=== PATIENT | female | born 1955 | race Caucasian/White ===

== ENCOUNTER 2023-05-10 14:57 | Outpatient (AMB) | payer OTHER, SELFPAY ==
[2023-05-10 14:59] VITALS: BP 112/62; PULSE 79; O2SAT 96; BMI 27.9
--- NOTE | 2023-05-10 14:59 | A.OFFPC_ITS ---
Vital Signs 05/10/23 14:59 Height 5 ft 3 in Weight 157 lb 4 oz BMI 27.9 BP 112/62 Blood Pressure Location Lt brachial Position Sitting Pulse 79 Pulse Source Pulse Oximeter Pulse Oximetry (%) 96 Oxygen Delivery Method Room Air Intake Visit Reasons: New patient-Requesting physical Intake Note: Patient is here as a new patient, she is concerned about hot flashes and her belly. Allergies ibuprofen Allergy (Mild, Verified 05/10/23 15:07) head feels like it's going to blow up morphine Allergy (Mild, Verified 05/10/23 15:07) Stomach Upset codeine Adverse Reaction (Mild, Verified 05/10/23 15:07) Stomach Upset Medication List - Last Reconciled 05/10/23 by Juan Andre MD atenolol 50 mg PO DAILY cholecalciferol (vitamin D3) 25 mcg PO DAILY citalopram 20 mg PO DAILY multivit, Ca, min-FA-soy isofl 400-60 mcg-mg (One-A-Day Menopause Formula) tabs PO simvastatin 20 mg PO DAILY vitamins A,C,P-epun-abymnc 4,296 mcg-226 mg-90 mg (ICaps AREDS) 1 cap PO BID HPI New patient-Requesting physical HPI Details New patient Prior PCP:?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 Hyperthyroid. Dad: PE. Brother: Substance abuse, Liver CA, DM. Sister: Lung CA. SocHx: Quit 35 years ago. EtOH 1 beer daily. No drugs. PFSH Medical History (Updated 05/10/23 @ 16:06 by Dean Bose) High cholesterol Surgical History (Updated 05/10/23 @ 15:12 by Paula Paulson CMA) History of reversal of tubal ligation H/O tubal ligation Family History (Updated 05/10/23 @ 15:15 by Paula Paulson CMA) Mother Colon cancer Father Pulmonary embolism Social History (Updated 05/10/23 @ 15:17 by Paula Paulson CMA) Household Members: None Housing: House Alcohol intake: current Patient Tobacco Use Status: Former Tobacco user Special michael needs: No Questionnaire PHQ-9 Over the last 2 weeks, how often have you been bothered by any of the following problems? 1. Little interest or pleasure in doing things: not at all 2. Feeling down, depressed, or hopeless: several days 3. Trouble falling or staying asleep, or sleeping too much: not at all 4. Feeling tired or having little energy: not at all 5. Poor appetite or overeating: not at all 6. Feeling bad about yourself - or that you are a failure or have let yourself or your family down: not at all 7. Trouble concentrating on things, such as reading the newspaper or watching television: not at all 8. Moving or speaking so slowly that other people could have noticed. Or the opposite - being so fidgety or restless that you have been moving around a lot more than usual: not at all 9. Thoughts that you would be better off or of hurting yourself in some way: not at all Total score: 1 Source: Developed by Drs. Bernard Lincoln, Ema Moran, Manjinder Elizondo and colleagues, with an educational kendra from [employer]. Thrive Questionnaire I am a: Patient What is your living situation today?: I have a steady place to live Within the past 12 months, did the food you bought not last and you didn't have the money to get more?: Never true Within the past 12 months, did you worry whether your food would run out before you got money to buy more?: Never true Do you have trouble paying for medicines?: No Do you have trouble getting transportation to medical appointments?: No Do you have trouble paying your heating and electricity bill?: No Do you have trouble taking care of your child, family member or friend?: No Do you have trouble with day-to-day activities such as bathing, preparing meals, shopping, managing finances, etc.?: No Are you currently unemployed and looking for a job?: No Are you interested in more education?: No AUDIT C Alcohol Use Questionnaire (AUDIT-C) 1. How often do you have a drink containing alcohol?: 2-3 times a week 2. How many drinks containing alcohol do you have on a typical day when you are drinking?: 1 or 2 3. How often do you have six or more drinks on one occasion?: Never Total Score: 3 MADAN-7 AMB Questionnaire MADAN-7 Date MADAN - 7 assessed: 05/10/23 Feeling nervous, anxious, or on edge: 0 = Not at all Not being able to stop or control worryin = Not at all Worrying too much about different things: 0 = Not at all Trouble relaxin = Not at all Being so restless that it is hard to sit still: 0 = Not at all Becoming easily annoyed or irritable: 0 = Not at all Feeling afraid as if something awful might happen: 0 = Not at all Total MADAN-7 score (0-4 normal; 5-9 mild; 10-14 moderate; 15-21 severe): 0 Source: Developed by Drs. Bernard Lincoln, Ema Moran, Manjinder Elizondo and colleagues, with an educational kendra from [employer]. Review of Systems Const Denies chills, Denies fatigue, Denies fever(s), Denies headache(s) and Denies weakness ENT Denies dizziness and Denies headache(s) Card Denies chest pain, Denies lightheadedness, Denies dyspnea and Denies other (Palpitations) Resp Denies cough, Denies dyspnea, Denies wheezing and Denies other ( shortness of breath) Musc Denies numbness and Denies tingling Neuro Denies dizziness, Denies headache(s), Denies numbness, Denies tingling, Denies paresthesias and Denies weakness Psych Denies anxiety and Denies depression Endo Denies fatigue Aller/Immun Denies wheezing Physical exam (Primary Care) Vital Signs: Last Vital Signs Pulse 79 05/10/23 14:59 BP 112/62 05/10/23 14:59 Pulse Ox 96 05/10/23 14:59 Oxygen Delivery Method Room Air 05/10/23 14:59 BMI result Body Mass Index 27.9 Tobacco/Smoking Status: Tobacco use Status Patient Tobacco Use Status Former Tobacco user 05/10/23 15:17 PHQ-9: PHQ-9 Score PHQ-9: Total score 1 05/10/23 15:31 Const General: no acute distress and well developed Nutritional Appearance: well nourished Orientation/consciousness: patient oriented x3 [facility] Head: Yes normocephalic and Yes atraumatic Eyes General: appearance normal, both eyes and all related structures Pupils: Equal, round and reactive pupils present EOM: EOMs intact bilaterally Resp Effort & Inspection: normal respiratory effort Auscultation: clear to auscultation bilaterally Cardio Rate: regular rate Rhythm: regular rhythm Heart sounds: S1 normal heart sound present, S2 normal heart sound present, no gallops, no murmurs and no rubs Neuro General: patient oriented x3 and gait normal Cranial nerves: Yes Equal, round and reactive pupils present Psych Affect: normal affect Assessment and Plan Assessment & Plan (1) Elevated fasting blood sugar: Code(s): R73.01 - Impaired fasting glucose Plan: Patient notes elevated fasting blood sugars. She did have a brother with diabetes that she says he ?did not take care of himself? Will check A1c test (2) Hot flashes: Code(s): R23.2 - Flushing Plan: Patient is frustrated regarding hot flashes and postmenopausal symptoms which have not abated She is trying [id number] supplements for now. We discussed clonidine and gabapentin. She has been on citalopram for many years for anxiety and depression so is already using an SSRI without improvement She will let me know if she would like to try a small dose of clonidine. (3) HLD (hyperlipidemia): Code(s): E78.5 - Hyperlipidemia, unspecified Plan: She is on simvastatin Check lipids (4) Mitral valve regurgitation: Code(s): I34.0 - Nonrheumatic mitral (valve) insufficiency Plan: She has an appointment with a new java web developer at [facility]. I have asked her to have them forward the java web developer's note. Cardiac auscultation today was normal. (5) Postmenopausal: Code(s): Z78.0 - Asymptomatic menopausal state Plan: As above, patient is postmenopausal and having symptoms from this. Trying supplements and we discussed that we could try some clonidine She will call if she wants to try this (6) Osteopenia: Code(s): M85.80 - Other specified disorders of bone density and structure, unspecified site Plan: Patient notes that she has been told she has osteopenia. Will follow with bone density testing when this is due Patient drinks a lot of cells are and advised her that this can worsen bone mineral loss (7) Depression with anxiety: Code(s): F41.8 - Other specified anxiety disorders Plan: She notes that she has been on citalopram for many years. She thinks about discontinuing this but says she is afraid to. She can trial taking half a tablet daily and resume 20 mg daily if she is having any problem with it. Otherwise we can discuss at her next visit and could continue to wean down further if she is able. (8) Overweight: Code(s): E66.3 - Overweight Plan: Patient is overweight and is frustrated with difficulty with weight loss. Will await labs including her A1c as she notes that she has some elevated fasting blood sugars. She may qualify for weight management program. She also noted that she drinks about 1 beer per day and this can be quite high in calories. Advised she reduce this due to caloric intake alone. (9) Laboratory exam ordered as part of routine general medical examination: Code(s): Z00.00 - Encounter for general adult medical examination without abnormal findings Plan: Check labs Orders: Orders Comprehensive [place]. Panel Fast Today Z00.00 - Encounter for general adult medical examination without abnormal findings Complete Blood Count Auto Diff Today Z00.00 - Encounter for general adult medical examination without abnormal findings TSH reflex Free T4 Today Z00.00 - Encounter for general adult medical examination without abnormal findings UA and rflx microscopic Today Z00.00 - Encounter for general adult medical examination without abnormal findings Hemoglobin A1c Today R73.01 - Impaired fasting glucose Lipid Panel Today Z00.00 - Encounter for general adult medical examination without abnormal findings Microalbumin, Random (w Creat) Today I10 - Essential (primary) hypertension Vitamin D 25-OH Total Today E55.9 - Vitamin D deficiency, unspecified Coding Level of Care Code New Pt Level 4 (27952) Diagnoses Elevated fasting blood sugar R73.01 Hot flashes R23.2 HLD (hyperlipidemia) E78.5 Mitral valve regurgitation I34.0 Postmenopausal Z78.0 Osteopenia M85.80 Depression with anxiety F41.8 Overweight E66.3 Laboratory exam ordered as part of routine general medical examination Z00.00
== END 2023-05-10 16:12 | disposition home or self-care (01) ==
PROVIDERS: PCP Family Medicine; Visit Provider Family Medicine
DX: R73.01 Impaired fasting glucose (principal); R23.2 Flushing; F41.8 Other specified anxiety disorders; E78.5 Hyperlipidemia, unspecified; I34.0 Nonrheumatic mitral (valve) insufficiency; Z78.0 Asymptomatic menopausal state; M85.80 Other specified disorders of bone density and structure, unspecified site; E66.3 Overweight
CPT/HCPCS: 99204

== ENCOUNTER 2023-07-20 07:29 | Outpatient (REF) | payer OTHER, SELFPAY ==
[2023-07-20 11:40] LABS: Appearance Urine Clear; Color Urine Yellow; Glucose Urine UA Negative (Negative); Leukocyte Esterase Urine Negative (Negative); Nitrite Urine Negative (Negative); Specific Gravity - Urine 1.015 (1.005-1.025); Urine Blood Negative (Negative); Urine Ketones Negative (Negative); Urine Protein Negative (Neg-Trace)
[2023-07-20 11:44] LABS: MANUAL DIFF FLAG NO
[2023-07-20 12:16] LABS: Estimated Average Glucose 114 mg/dL; Hemoglobin A1c % 5.6 % (<6.0)
[2023-07-20 12:26] LABS: Basophils Percent Auto 0.7 % (0-2); Eosinophils Absolute Auto 0.1 X10*3/uL (0.0-0.4); Eosinophils Percent Auto 3.3 % (0-4); Hematocrit 45.2 % (37.0-47.0); Hemoglobin 14.9 g/dl (12.0-16.0); Imm Gran Abs Auto 0.01 X10*3/uL (0.00-0.03); Imm Gran Pct Auto 0.2 % (0.0-0.4); Lymphocytes Absolute Auto 1.6 X10*3/uL (1.2-4.9); Lymphocytes Percent Auto 38.7 % (20-40); Mean Corpuscular Hemoglobin 30.4 pg (27.0-33.0); Mean Corpuscular Volume 92.2 fL (80.0-98.0); Mean Platelet Volume 10.8 fL (9.4-12.3); Monocytes Absolute Auto 0.4 X10*3/uL (0.1-1.2); Monocytes Percent Auto 10.3 % (2-11); Neutrophils Percent Auto 46.8 % (45-73); Platelet Count 226 X10*3/uL (160-400); Red Cell Distribution Width 13.4 % (11.0-16.0); White Blood Count 4.2 X10*3/uL (4.8-10.8)
[2023-07-20 12:33] LABS: Alanine Aminotransferase 17 U/L (0-31); Alkaline Phosphatase 71 U/L (39-117); Anion Gap 10 (12-20); Aspartate Amino Transferase 17 U/L (5-31); Bilirubin Total 0.7 mg/dL (0.0-1.0); Blood Urea Nitrogen 11 mg/dL (9-16); Carbon Dioxide 27 mmol/L (22-29); Chloride 103 mmol/L (96-108); Cholesterol 241 mg/dL (<200); Estimated Glomerular Filt Rate > 60; Glucose Fasting 109 mg/dL (60-99); HDL Cholesterol 39 mg/dL (>40); LDL Cholesterol Calculated 168 mg/dL (<100); Potassium 4.3 mmol/L (3.3-5.1); Sodium 136 mmol/L (135-145); Total Protein 6.8 g/dL (6.5-8.0); Triglycerides 174 mg/dL (<150)
[2023-07-20 12:51] LABS: Creatinine Urine 146.85 mg/dL
[2023-07-20 12:59] LABS: TSH reflex Free T4 3.92 uIU/mL (0.32-4.0); Vitamin D 25-OH Total 47.1 ng/mL (>30)
== END 2023-07-20 07:30 | disposition home or self-care (01) ==
LOC: HO.WFDLDS 07:29
PROVIDERS: Visit Provider Family Medicine
DX: Z00.00 Encounter for general adult medical examination without abnormal findings (principal); I10 Essential (primary) hypertension; R73.01 Impaired fasting glucose; E55.9 Vitamin D deficiency, unspecified
CPT/HCPCS: 36415; 80053; 80061; 81003; 82043; 82306; 82570; 83036; 84443; 85025

== ENCOUNTER 2023-08-03 10:51 | Outpatient (AMB) | payer OTHER, SELFPAY ==
--- NOTE | 2023-08-03 11:03 | A.OFFPC_ITS ---
Vital Signs 08/03/23 11:05 Height 5 ft 3 in Weight 156 lb BMI 27.6 BP 120/64 Blood Pressure Location Lt brachial Position Sitting Pulse 69 Pulse Source Pulse Oximeter Pulse Oximetry (%) 97 Oxygen Delivery Method Room Air Intake Visit Reasons: CPE with f/u labs and health maint. Intake Note: Patient is here today for her physical. Allergies ibuprofen Allergy (Mild, Verified 08/03/23 11:06) head feels like it's going to blow up morphine Allergy (Mild, Verified 08/03/23 11:06) Stomach Upset codeine Adverse Reaction (Mild, Verified 08/03/23 11:06) Stomach Upset Tobacco use date assessed: 08/03/23 Fall risk assessment: No Falls in past year Last assessed Fall Risk: 08/03/23 Dental Screening Dental Screen Date: 08/03/23 Did you have a dental visit in the last 12 months?: Yes Did you have a dental problem in the last 6 months where you did not have access to dental care?: No Was dental information given to patient?: Patient has dentist HPI CPE with f/u labs and health maint. HPI Details 67 y/o female presents for a CPE with f/ u labs and health maintenance. Labs were drawn 07/20/23. Reviewed labs with pt. Elevated fasting glucose of 109. A1c 5.6%. Triglycerides 174. TC 241. LDL 168. HDL low at 39. She is on simvastatin 20mg daily. She follows up with an community relations specialist every year. Pt reports she is up to date with her colonoscopy. She follows up with them every 5 years due to hx of polyps. [facility] Medical History High cholesterol Surgical History History of reversal of tubal ligation H/O tubal ligation Family History Mother Colon cancer Father Pulmonary embolism Social History Household Members: None Housing: House Alcohol intake: current Patient Tobacco Use Status: Former Tobacco user Special michael needs: No Cognitive needs: No Hearing needs: No Vision needs: Yes (Patient wears glasses.) Questionnaire MADAN-7 AMB Questionnaire MADAN-7 Date MADAN - 7 assessed: 05/10/23 Source: Developed by Drs. Bernard Lincoln, Ema Moran, Manjinder Elizondo and colleagues, with an educational kendra from [employer]. Physical exam (Primary Care) Vital Signs: Last Vital Signs Pulse 69 08/03/23 11:05 BP 120/64 08/03/23 11:05 Pulse Ox 97 08/03/23 11:05 Oxygen Delivery Method Room Air 08/03/23 11:05 BMI result Body Mass Index 27.6 Tobacco/Smoking Status: Tobacco use Status Tobacco use date assessed 08/03/23 08/03/23 11:08 Patient Tobacco Use Status Former Tobacco user 08/03/23 11:08 Assessment and Plan Assessment & Plan (1) Adult general medical exam: Code(s): Z00.00 - Encounter for general adult medical examination without abnormal findings Plan: 67-year-old?woman?presents?for?complete?physical?exam Encouraged?healthy?diet?with?active?lifestyle?and?plenty?of?exercise (2) HLD (hyperlipidemia): Code(s): E78.5 - Hyperlipidemia, unspecified Plan: LDL?cholesterol?still?too?high?despite?simvastatin?20?mg?daily.??Will?switch?thi s?to?atorvastatin?20?mg?daily We?can?check?this?again?in?a?few?months (3) Elevated fasting blood sugar: Code(s): R73.01 - Impaired fasting glucose Plan: Mildly?elevated?fasting?blood?sugars?and?A1c?at?top?normal?range;?5.6% Likely?insulin?resistance Encouraged?a?diet?lower?in?sugars?and?starches.??Encouraged?weight?loss?and?exer cise (4) Osteopenia: Code(s): M85.80 - Other specified disorders of bone density and structure, unspecified site Plan: Encouraged?weight-bearing?exercise?and?good?sources?of?calcium?and?vitamin-D Her?vitamin-D?level?was?within?normal?range (5) Screening for colon cancer: Code(s): Z12.11 - Encounter for screening for malignant neoplasm of colon Plan: Colonoscopy?by??Tracey Will?request?report (6) Screening for cervical cancer: Code(s): Z12.4 - Encounter for screening for malignant neoplasm of cervix Plan: No?longer?gets?Pap?smears (7) Breast cancer screening by mammogram: Code(s): Z12.31 - Encounter for screening mammogram for malignant neoplasm of breast Plan: [facility]at[facility] Will?request?report (8) Mitral valve regurgitation: Code(s): I34.0 - Nonrheumatic mitral (valve) insufficiency Plan: Follow-up?with?Cardiology Medications: New atorvastatin 20 mg PO BEDTIME 90 days 90 tabs 3RF Coding Level of Care Code Est Pt Level 3 (20847) Est Pt Prev Care >65y(84213) Diagnoses Adult general medical exam Z00.00 HLD (hyperlipidemia) E78.5 Elevated fasting blood sugar R73.01 Osteopenia M85.80 Screening for colon cancer Z12.11 Screening for cervical cancer Z12.4 Breast cancer screening by mammogram Z12.31 Mitral valve regurgitation I34.0
[2023-08-03 11:05] VITALS: BP 120/64; PULSE 69; O2SAT 97; BMI 27.6
== END 2023-08-03 12:08 | disposition home or self-care (01) ==
PROVIDERS: PCP Family Medicine; Visit Provider Family Medicine
DX: Z00.00 Encounter for general adult medical examination without abnormal findings (principal); E78.5 Hyperlipidemia, unspecified; R73.01 Impaired fasting glucose; M85.80 Other specified disorders of bone density and structure, unspecified site; I34.0 Nonrheumatic mitral (valve) insufficiency; Z12.31 Encounter for screening mammogram for malignant neoplasm of breast; Z12.11 Encounter for screening for malignant neoplasm of colon; Z12.4 Encounter for screening for malignant neoplasm of cervix
CPT/HCPCS: 99213; 99397

== ENCOUNTER 2023-10-31 07:35 | Outpatient (REF) | payer MEDICARE, SELFPAY ==
[2023-10-31 11:46] LABS: Estimated Average Glucose 114 mg/dL; Hemoglobin A1c % 5.6 % (<6.0)
[2023-10-31 12:10] LABS: Alanine Aminotransferase 16 U/L (0-31); Alkaline Phosphatase 72 U/L (39-117); Anion Gap 9 (12-20); Aspartate Amino Transferase 16 U/L (5-31); Bilirubin Total 0.7 mg/dL (0.0-1.0); Blood Urea Nitrogen 13 mg/dL (9-16); Calcium 9.3 mg/dL (8.4-10.2); Carbon Dioxide 28 mmol/L (22-29); Chloride 108 mmol/L (96-108); Cholesterol 180 mg/dL (<200); Estimated Glomerular Filt Rate > 60; Glucose Fasting 95 mg/dL (60-99); HDL Cholesterol 39 mg/dL (>40); LDL Cholesterol Calculated 114 mg/dL (<100); Potassium 4.6 mmol/L (3.3-5.1); Sodium 140 mmol/L (135-145); Total Protein 6.7 g/dL (6.5-8.0); Triglycerides 137 mg/dL (<150)
[2023-10-31 12:30] LABS: Vitamin D 25-OH Total 39.3 ng/mL (>30)
== END 2023-10-31 07:36 | disposition home or self-care (01) ==
LOC: HO.WFDLDS 07:35
PROVIDERS: Visit Provider Family Medicine
DX: Z00.00 Encounter for general adult medical examination without abnormal findings (principal); R73.01 Impaired fasting glucose; E78.5 Hyperlipidemia, unspecified; E55.9 Vitamin D deficiency, unspecified
CPT/HCPCS: 36415; 80053; 80061; 82306; 83036

== ENCOUNTER 2023-11-03 08:45 | Outpatient (AMB) | payer MEDICARE, SELFPAY ==
[2023-11-03 08:47] VITALS: BP 120/82; PULSE 77; O2SAT 97; BMI 27.5
--- NOTE | 2023-11-03 08:47 | A.OFFPC_ITS ---
Vital Signs 11/03/23 08:47 Height 5 ft 3 in Weight 155 lb 6 oz BMI 27.5 BP 120/82 Blood Pressure Location Rt brachial Position Sitting Pulse 77 Pulse Source Pulse Oximeter Pulse Oximetry (%) 97 Oxygen Delivery Method Room Air Intake Visit Reasons: f/u hypercholesterolemia Intake Note: Pt presents to the office today for a follow up for hypercholesterolemia. Pt states she has been feeling well and denies any concerns at this time. Allergies ibuprofen Allergy (Mild, Verified 11/03/23 08:50) head feels like it's going to blow up morphine Allergy (Mild, Verified 11/03/23 08:50) Stomach Upset codeine Adverse Reaction (Mild, Verified 11/03/23 08:50) Stomach Upset Tobacco use date assessed: 11/03/23 Fall risk assessment: No Falls in past year Last assessed Fall Risk: 11/03/23 Dental Screening Dental Screen Date: 11/03/23 Did you have a dental visit in the last 12 months?: Yes Did you have a dental problem in the last 6 months where you did not have access to dental care?: No Was dental information given to patient?: Patient has dentist HPI f/u hypercholesterolemia 2 HPI Details 68 y/o female presents to f/u hyperchole sterolemia. Had changed simvastatin to artovastatin. Labs were drawn 10/31/23. Reviewed labs with pt. Triglycerides 137. TC 180. LDL improved from 168 to 114. HDL low at 39. She denies any issues with artovastatin. Ongoing complaints of hot flashes - menopause. [facility] Medical History High cholesterol Surgical History History of reversal of tubal ligation H/O tubal ligation Family History (Updated 11/03/23 @ 08:53 by Yashira Ray MA) Mother Colon cancer Father Pulmonary embolism Brother Substance use disorder Mental health disorder Social History Household Members: None Housing: House Alcohol intake: current Patient Tobacco Use Status: Former Tobacco user Special michael needs: No Cognitive needs: No Hearing needs: No Vision needs: Yes (Patient wears glasses.) Questionnaire PHQ-9 Over the last 2 weeks, how often have you been bothered by any of the following problems? 1. Little interest or pleasure in doing things: not at all 2. Feeling down, depressed, or hopeless: several days 3. Trouble falling or staying asleep, or sleeping too much: not at all 4. Feeling tired or having little energy: not at all 5. Poor appetite or overeating: not at all 6. Feeling bad about yourself - or that you are a failure or have let yourself or your family down: not at all 7. Trouble concentrating on things, such as reading the newspaper or watching television: not at all 8. Moving or speaking so slowly that other people could have noticed. Or the opposite - being so fidgety or restless that you have been moving around a lot more than usual: not at all 9. Thoughts that you would be better off or of hurting yourself in some way: not at all Total score: 1 Source: Developed by Drs. Bernard Lincoln, Ema Moran, Manjinder Elizondo and colleagues, with an educational kendra from [email or web address]. Thrive Questionnaire Date Thrive assessed: 11/03/23 I am a: Patient What is your living situation today?: I have a steady place to live Within the past 12 months, did the food you bought not last and you didn't have the money to get more?: Never true Within the past 12 months, did you worry whether your food would run out before you got money to buy more?: Never true Do you have trouble paying for medicines?: No Do you have trouble getting transportation to medical appointments?: No Do you have trouble paying your heating and electricity bill?: No Do you have trouble taking care of your child, family member or friend?: No Do you have trouble with day-to-day activities such as bathing, preparing meals, shopping, managing finances, etc.?: No Are you currently unemployed and looking for a job?: No Are you interested in more education?: No THRIVE Score: 0 AUDIT C Alcohol Use Questionnaire (AUDIT-C) 1. How often do you have a drink containing alcohol?: Monthly or less 2. How many drinks containing alcohol do you have on a typical day when you are drinking?: 1 or 2 3. How often do you have six or more drinks on one occasion?: Never Total Score: 1 MADAN-7 AMB Questionnaire MADAN-7 Date MADAN - 7 assessed: 05/10/23 Feeling nervous, anxious, or on edge: 0 = Not at all Not being able to stop or control worryin = Not at all Worrying too much about different things: 0 = Not at all Trouble relaxin = Not at all Being so restless that it is hard to sit still: 0 = Not at all Becoming easily annoyed or irritable: 0 = Not at all Feeling afraid as if something awful might happen: 0 = Not at all Total MADAN-7 score (0-4 normal; 5-9 mild; 10-14 moderate; 15-21 severe): 0 Source: Developed by Drs. Bernard Lincoln, Ema Moran, Manjinder Elizondo and colleagues, with an educational kendra from [email or web address]. Physical exam (Primary Care) Vital Signs: Last Vital Signs Pulse 77 11/03/23 08:47 BP 120/82 11/03/23 08:47 Pulse Ox 97 11/03/23 08:47 Oxygen Delivery Method Room Air 11/03/23 08:47 BMI result Body Mass Index 27.5 Tobacco/Smoking Status: Tobacco use Status Tobacco use date assessed 11/03/23 11/03/23 08:55 Patient Tobacco Use Status Former Tobacco user 11/03/23 08:55 PHQ-9: PHQ-9 Score PHQ-9: Total score 1 11/03/23 09:01 Thrive Assessment: Date of Thrive Assessment Date Thrive assessed 11/03/23 11/03/23 08:55 Assessment and Plan Assessment & Plan (1) HLD (hyperlipidemia): Code(s): E78.5 - Hyperlipidemia, unspecified Plan: Lipids?now?well?controlled. LDL?goal?is?less?than?130 Still?has?mildly?low?HDL?and?I?encouraged?exercise (2) Hot flashes: Code(s): R23.2 - Flushing Plan: Menopause?and?hot?flashes. She?would?like?to?know?more?about?a?medication?called Bijuva and?I?will?look?into?this?for?her. (3) Tendinitis of right forearm: Code(s): M77.8 - Other enthesopathies, not elsewhere classified Plan: Right?arm?tendinitis Had?referred?her?to?ortho?for?consideration?of?injectio n?therapy?but?she?has?not?gone?yet. She?already?sees?sees?a?or?though?for?his?neck?and?spine?pain?and?will?discuss?t his?with?him. Coding Level of Care Code Est Pt Level 4 (58825) Diagnoses HLD (hyperlipidemia) E78.5 Hot flashes R23.2 Tendinitis of right forearm M77.8
== END 2023-11-03 09:19 | disposition home or self-care (01) ==
PROVIDERS: PCP Family Medicine; Visit Provider Family Medicine
DX: E78.5 Hyperlipidemia, unspecified (principal); R23.2 Flushing; M77.8 Other enthesopathies, not elsewhere classified
CPT/HCPCS: 99214

== ENCOUNTER 2024-02-01 07:34 | Outpatient (REF) | payer MEDICARE, SELFPAY ==
[2024-02-01 12:21] LABS: Alanine Aminotransferase 14 U/L (0-31); Albumin Level 3.9 g/dL (3.5-5.0); Alkaline Phosphatase 68 U/L (39-117); Anion Gap 8 (12-20); Aspartate Amino Transferase 15 U/L (5-31); Blood Urea Nitrogen 8 mg/dL (9-16); Calcium 8.9 mg/dL (8.4-10.2); Carbon Dioxide 29 mmol/L (22-29); Chloride 105 mmol/L (96-108); Cholesterol 155 mg/dL (<200); Estimated Glomerular Filt Rate > 60; Glucose Fasting 104 mg/dL (60-99); HDL Cholesterol 38 mg/dL (>40); LDL Cholesterol Calculated 91 mg/dL (<100); Potassium 3.9 mmol/L (3.3-5.1); Sodium 138 mmol/L (135-145); Total Protein 6.6 g/dL (6.5-8.0); Triglycerides 133 mg/dL (<150)
== END 2024-02-01 07:35 | disposition home or self-care (01) ==
LOC: HO.WFDLDS 07:34
PROVIDERS: Visit Provider Family Medicine
DX: Z00.00 Encounter for general adult medical examination without abnormal findings (principal)
CPT/HCPCS: 36415; 80053; 80061

== ENCOUNTER 2024-02-02 08:23 | Outpatient (AMB) | payer MEDICARE, SELFPAY ==
[2024-02-02 08:26] VITALS: BP 110/70; PULSE 75; RESP 14; TEMP 36.5; O2SAT 97; BMI 27.1
--- NOTE | 2024-02-02 08:26 | A.OFFPC_ITS ---
Vital Signs 02/02/24 08:26 Height 5 ft 3 in Weight 153 lb 4 oz BMI 27.1 BP 110/70 Blood Pressure Location Rt brachial Position Sitting Respiration 14 Pulse 75 Pulse Source Pulse Oximeter Temp 97.7 F Temp Source Temporal Artery Scan Pulse Oximetry (%) 97 Oxygen Delivery Method Room Air Intake Visit Reasons: f/u HTN & chronic conditions Intake Note: Patient states that shes had a itch in her back she believes is from nerve damage, its been there for about 10 years. Patient also got hair color in her eye last night. 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 Accompanied by: Self / Same As Patient Allergies ibuprofen Allergy (Mild, Verified 02/02/24 08:32) head feels like it's going to blow up morphine Allergy (Mild, Verified 02/02/24 08:32) Stomach Upset codeine Adverse Reaction (Mild, Verified 02/02/24 08:32) Stomach Upset Medication List - Last Reconciled 02/02/24 by Juan Andre MD aspirin 81 mg PO DAILY atenolol 50 mg PO DAILY 90 days atorvastatin 20 mg PO BEDTIME 90 days citalopram 20 mg PO DAILY 90 days Tobacco use date assessed: 11/03/23 Fall risk assessment: No Falls in past year Last assessed Fall Risk: 02/02/24 Dental Screening Dental Screen Date: 11/03/23 HPI f/u HTN & chronic conditions HPI Details To?follow-up?hypertension?and?chronic?conditions She?is?on?atenolol?for?blood?pressure?and?blood?pressure?today?is?110/70 Also?has?concerns?for?hair?dye?in eye Also?has ?irritation?at?back Also?wanted?to?discuss [place] at?last?visit. FORMERLY [facility], [facility] Medical History High cholesterol Surgical History History of reversal of tubal ligation H/O tubal ligation Family History Mother Colon cancer Father Pulmonary embolism Brother Substance use disorder Mental health disorder Social History Household Members: None Housing: House Alcohol intake: current Patient Tobacco Use Status: Former Tobacco user Special michael needs: No service: No Current occupational status: retired Cognitive needs: No Hearing needs: No Vision needs: Yes (Patient wears glasses.) Questionnaire PHQ-9 Over the last 2 weeks, how often have you been bothered by any of the following problems? 1. Little interest or pleasure in doing things: not at all 2. Feeling down, depressed, or hopeless: not at all 3. Trouble falling or staying asleep, or sleeping too much: not at all 4. Feeling tired or having little energy: not at all 5. Poor appetite or overeating: not at all 6. Feeling bad about yourself - or that you are a failure or have let yourself or your family down: not at all 7. Trouble concentrating on things, such as reading the newspaper or watching television: not at all 8. Moving or speaking so slowly that other people could have noticed. Or the opposite - being so fidgety or restless that you have been moving around a lot more than usual: not at all 9. Thoughts that you would be better off or of hurting yourself in some way: not at all Total score: 0 Depression Screening Interpretation: Negative Depression Screening Done: Yes [id number] - PHQ-9 Billing: Yes Source: Developed by Drs. Bernard Lincoln, Ema Moran, Manjinder Elizondo and colleagues, with an educational kendra from [employer]. Thrive Questionnaire Date Thrive assessed: 11/03/23 MADAN-7 AMB Questionnaire MADAN-7 Date MADAN - 7 assessed: 02/02/24 Feeling nervous, anxious, or on edge: 0 = Not at all Not being able to stop or control worryin = Not at all Worrying too much about different things: 0 = Not at all Trouble relaxin = Not at all Being so restless that it is hard to sit still: 0 = Not at all Becoming easily annoyed or irritable: 0 = Not at all Feeling afraid as if something awful might happen: 0 = Not at all Total MADAN-7 score (0-4 normal; 5-9 mild; 10-14 moderate; 15-21 severe): 0 Source: Developed by Ema ArshadW. Dean, Manjinder Elizondo and colleagues, with an educational kendra from [employer]. MADAN-7 Assessment Billing MADAN-7 Assessment Tool: MADAN-7 Assessment 96426 Review of Systems Const Denies chills, Denies fatigue, Denies fever(s), Denies headache(s) and Denies weakness ENT Denies dizziness and Denies headache(s) Card Denies chest pain, Denies lightheadedness, Denies dyspnea and Denies other (Palpitations) Resp Denies cough, Denies dyspnea, Denies wheezing and Denies other ( shortness of br eath) Musc Denies numbness and Denies tingling Neuro Denies dizziness, Denies headache(s), Denies numbness, Denies tingling, Denies paresthesias and Denies weakness Psych Denies anxiety and Denies depression Endo Denies fatigue Aller/Immun Denies wheezing Physical exam (Primary Care) Vital Signs: Last Vital Signs Temp 97.7 F 02/02/24 08:26 Pulse 75 02/02/24 08:26 Resp 14 02/02/24 08:26 BP 110/70 02/02/24 08:26 Pulse Ox 97 02/02/24 08:26 Oxygen Delivery Method Room Air 02/02/24 08:26 BMI result Body Mass Index 27.1 Tobacco/Smoking Status: Tobacco use Status Tobacco use date assessed 11/03/23 02/02/24 08:34 Patient Tobacco Use Status Former Tobacco user 02/02/24 08:34 PHQ-9: PHQ-9 Score PHQ-9: Total score 0 02/02/24 08:57 Depression Screening Interpretation: Negative Thrive Assessment: Date of Thrive Assessment Date Thrive assessed 11/03/23 02/02/24 08:34 Const General: no acute distress and well developed Nutritional Appearance: well nourished Orientation/consciousness: patient oriented x3 HENMT Head: Yes normocephalic and Yes atraumatic Eyes General: appearance normal, both eyes and all related structures Pupils: Equal, round and reactive pupils present EOM: EOMs intact bilaterally Resp Effort & Inspection: normal respiratory effort Auscultation: clear to auscultation bilaterally Cardio Rate: regular rate Rhythm: regular rhythm Heart sounds: S1 normal heart sound present, S2 normal heart sound present, no gallops, no murmurs and no rubs Neuro General: patient oriented x3 and gait normal Cranial nerves: Yes Equal, round and reactive pupils present Psych Affect: normal affect Assessment and Plan Assessment & Plan (1) Hypertension: Code(s): I10 - Essential (primary) hypertension Plan: Blood?pressure?is?well?controlled.??Goal?is?less?than?130/90 Continue?atenolol (2) HLD (hyperlipidemia): Code(s): E78.5 - Hyperlipidemia, unspecified Plan: Lipids?a ppear?well?controlled?with?addition?of?atorvastatin?except?HDL?is?too?low Encouraged?exercise (3) Irritation of eye: Code(s): H57.89 - Other specified disorders of eye and adnexa Plan: Patient?got?hair?dye?in?her?eye?yesterday She?says?she?rinse?thoroughly?after?this?occurred No?vision?change?but?still?significantly?irritated She?will?call?her?eye?doctor?today (4) Elevated fasting blood sugar: Code(s): R73.01 - Impaired fasting glucose Plan: A1c?at?5.6?at?most?recent?check Encouraged?diet?lower?in?sugars?and?starches (5) Skin irritation: Code(s): R23.8 - Other skin changes Plan: Patient?has?a?patch?of?skin?on?her?back?which?appears?mildly?at?irritated Will?send?script?for?betamethasone-clotrimazole (6) Hot flashes: Code(s): R23.2 - Flushing Plan: Patient?had?wanted?to?try?hormone?replacement?therapy Advising?we?try?Veozah (7) Coronary artery disease: Code(s): I25.10 - Atherosclerotic heart disease of [place] coronary artery without angina pectoris Plan: She?is?on?atorvastatin?and?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
== END 2024-02-02 09:21 | disposition home or self-care (01) ==
PROVIDERS: PCP Family Medicine; Visit Provider Family Medicine
DX: I10 Essential (primary) hypertension (principal); E78.5 Hyperlipidemia, unspecified; H57.89 Other specified disorders of eye and adnexa; R73.01 Impaired fasting glucose; R23.8 Other skin changes; R23.2 Flushing; I25.10 Atherosclerotic heart disease of native coronary artery without angina pectoris
CPT/HCPCS: 99214

== ENCOUNTER 2024-10-30 09:49 | Outpatient (AMB) | payer MEDICARE, SELFPAY ==
--- NOTE | 2024-10-30 09:57 | A.OFFPC_ITS ---
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 Allergies ibuprofen Allergy (Mild, Verified 10/30/24 09:58) head feels like it's going to blow up morphine Allergy (Mild, Verified 10/30/24 09:58) Stomach Upset epinephrine Adverse Reaction (Intermediate, Verified 10/30/24 09:58) Palpitations codeine Adverse Reaction (Mild, Verified 10/30/24 09:58) Stomach Upset Medication List - Last Reconciled 10/30/24 by Juan Andre MD aspirin 81 mg PO DAILY atenolol 50 mg PO DAILY 90 days atorvastatin 20 mg PO BEDTIME 90 days citalopram 20 mg PO DAILY 90 days clotrimazole-betamethasone 1-0.05 % 1 appl topical BID 2 weeks Tobacco use date assessed: 11/03/23 Dental Screening Dental Screen Date: 11/03/23 HPI persistent cough HPI Details 69 y/o female presents today with compla ints of a persistent cough. Pt notes she had went to urgent care and was told cough was due to a postnasal drip. Pt notes cough has been worsening. Cough x1 month. Blood pressure today 100/58, 78p. She is on atenolol 50mg daily. HPI Comments History of Present Illness Details Documentation assistance for Juan Andre MD, was provided by Dean Bose,? Furnace Erector on 10/30/2024 at 10:27 AM MARTY. Afia, Dr. Andre, have read, observed, and verified documentation. ?? PFSH Medical History High cholesterol Surgical History History of reversal of tubal ligation H/O tubal ligation Family History Mother Colon cancer Father Pulmonary embolism Brother Substance use disorder Mental health disorder Social History Household Members: None Housing: House Alcohol intake: current Patient Tobacco Use Status: Former Tobacco user Special michael needs: No service: No Current occupational status: retired Cognitive needs: No Hearing needs: No Vision needs: Yes (Patient wears glasses.) Questionnaire PHQ-9 Over the last 2 weeks, how often have you been bothered by any of the following problems? 1. Little interest or pleasure in doing things: not at all 2. Feeling down, depressed, or hopeless: not at all 3. Trouble falling or staying asleep, or sleeping too much: not at all 4. Feeling tired or having little energy: not at all 5. Poor appetite or overeating: several days 6. Feeling bad about yourself - or that you are a failure or have let yourself or your family down: not at all 7. Trouble concentrating on things, such as reading the newspaper or watching television: not at all 8. Moving or speaking so slowly that other people could have noticed. Or the opposite - being so fidgety or restless that you have been moving around a lot more than usual: not at all 9. Thoughts that you would be better off or of hurting yourself in some way: not at all Total score: 1 Source: Developed by Drs. Bernard Lincoln, Ema Moran, Manjinder Elizondo and colleagues, with an educational kendra from [employer]. Thrive Questionnaire Date Thrive assessed: 11/03/23 I am a: Patient What is your living situation today?: I have a steady place to live Within the past 12 months, did the food you bought not last and you didn't have the money to get more?: Never true Within the past 12 months, did you worry whether your food would run out before you got money to buy more?: Never true Do you have trouble paying for medicines?: No Do you have trouble getting transportation to medical appointments?: No Do you have trouble paying your heating and electricity bill?: No Do you have trouble taking care of your child, family member or friend?: No Do you have trouble with day-to-day activities such as bathing, preparing meals, shopping, managing finances, etc.?: No Are you currently unemployed and looking for a job?: No Are you interested in more education?: No Please select the resources that you would like help with: None Currently or been in a relationship where the following occur: No concerns reported THRIVE Score: 0 AUDIT C Alcohol Use Questionnaire (AUDIT-C) 1. How often do you have a drink containing alcohol?: 2-4 times a month 2. How many drinks containing alcohol do you have on a typical day when you are drinking?: 1 or 2 3. How often do you have six or more drinks on one occasion?: Never Total Score: 2 MADAN-7 AMB Questionnaire MADAN-7 Date MADAN - 7 assessed: 02/02/24 Feeling nervous, anxious, or on edge: 0 = Not at all Not being able to stop or control worryin = Not at all Worrying too much about different things: 0 = Not at all Trouble relaxin = Not at all Being so restless that it is hard to sit still: 0 = Not at all Becoming easily annoyed or irritable: 0 = Not at all Feeling afraid as if something awful might happen: 0 = Not at all Total MADAN-7 score (0-4 normal; 5-9 mild; 10-14 moderate; 15-21 severe): 0 Source: Developed by Drs. Bernard Lincoln, Ema Moran, Manjinder Elizondo and colleagues, with an educational kendra from [employer]. Review of Systems Const Denies chills, Denies fatigue, Denies fever(s), Denies headache(s) and Denies weakness ENT Denies dizziness, Denies headache(s), Reports nasal congestion and Reports post nasal drip Card Denies dyspnea Resp Reports cough, Denies dyspnea and Denies wheezing Musc Denies numbness and Denies tingling Skin/Breast Reports rash Neuro Denies dizziness, Denies headache(s), Denies numbness, Denies tingling and Denies weakness Psych Denies anxiety and Denies depression Endo Denies fatigue Aller/Immun Denies wheezing Physical exam (Primary Care) Vital Signs: Last Vital Signs Temp 97.5 F 10/30/24 09:59 Pulse 78 10/30/24 09:59 Resp 12 10/30/24 09:59 BP 100/58 L 10/30/24 09:59 Pulse Ox 95 03/12/25 09:59 Oxygen Delivery Method Room Air 10/30/24 09:59 BMI result Body Mass Index 28.7 Tobacco/Smoking Status: Tobacco use Status Tobacco use date assessed 11/03/23 10/30/24 10:02 Patient Tobacco Use Status Former Tobacco user 10/30/24 10:02 PHQ-9: PHQ-9 Score PHQ-9: Total score 1 10/30/24 10:02 Thrive Assessment: Date of Thrive Assessment Date Thrive assessed 11/03/23 10/30/24 10:02 Currently or been in a relationship where the following occur: No concerns reported Const General: well developed; No acute distress Nutritional Appearance: well nourished Orientation/consciousness: patient oriented x3 HENMT Head: Yes normocephalic and Yes atraumatic Eyes General: appearance normal, both eyes and all related structures Pupils: Equal, round and reactive pupils present EOM: EOMs intact bilaterally Resp Effort & Inspection: normal respiratory effort Auscultation: clear to auscultation bilaterally Cardio Rate: regular rate Rhythm: regular rhythm Heart sounds: S1 normal heart sound present, S2 normal heart sound present, no gallops, no murmurs and no rubs Back/Spine/Pelvis Other: Rash on her back Neuro General: patient oriented x3 and gait normal Cranial nerves: Yes Equal, round and reactive pupils present Psych Affect: normal affect Coding Level of Care Code Est Pt Level 4 (07956) Diagnoses Sinusitis J32.9 Cough R05.9 Hypertension I10 Coronary artery disease I25.10 Rash R21 Assessment & Plan Assessment & Plan (1) Sinusitis: Code(s): J32.9 - Chronic sinusitis, unspecified Category: Medical Plan: Significant?nasal?congestion?and?sinusitis?with?tenderness Will?have?her?start?a?Z-Boy. Risks/Benefits were discussed. Warm?compresses?sinuses Nasal?saline?rinse Will?give?her?a daytime?antihistamine?as?well (2) Cough: Code(s): R05.9 - Cough, unspecified Category: Medical Plan: Lungs?are?clear.??Cough?appears?to?be?secondary?to?postnasal?drip?and?upper?resp iratory?secretions Will?treat?underlying?condition?as?above (3) Hypertension: Code(s): I10 - Essential (primary) hypertension Category: Medical Plan: Blood?pressure?is?controlled.??Goal?is?less?than?130/80 No?medication?changes?made?today (4) Coronary artery disease: Code(s): I25.10 - Atherosclerotic heart disease of [place] coronary artery without angina pectoris Category: Medical Plan: Stable (5) Rash: Code(s): R21 - Rash and other nonspecific skin eruption Category: Medical Plan: Ongoing?rash?on?her?back. She?can?continue?to?use?steroid?cream Referred?to?[facility] Orders: Referrals Dermatology Referral R21 - Rash and other nonspecific skin eruption Medications: New azithromycin (Zithromax Z-Boy) take 500 mg today (day 1), then 250 mg for 4 days (days 2-5) PO 5 days 6 tabs 0RF cetirizine (All Day Allergy (cetirizine)) 10 mg PO DAILY 30 days PRN 30 tabs 0RF allergy symptoms
[2024-10-30 09:59] VITALS: BP 100/58; PULSE 78; RESP 12; TEMP 36.4; O2SAT 95; BMI 28.7
--- OUTSIDE RECORDS SUMMARY | 2024-10-30 10:55 | XMS_ITS ---
Author Name [facility] Organization Unknown Encounters Encounter Type Encounter Reason Primary Diagnosis Location Date Ambulatory no current diagnosis [facility] [employer] 04/05/2023 Care Team Organization Name Specialty Phone Email Start Date End [facility] NO PCP Primary Care 03/15/2024 [facility] 04/07/2023 [facility] 04/05/2023 04/05/2023
--- OUTSIDE RECORDS SUMMARY | 2024-10-30 10:56 | XMS_ITS | Data Portability ---
Author Organization [facility], [facility] Address [address] [place] [address] Care Team Providers Care Dry Cleaner Presser Name Role Phone CLAYTON CASAS Primary Care Provider Assessment No assessment recorded. Plan of Treatment Reminders Order Date Submit Date Provider Last Modified By Organization Details Last Modified Time Details Appointments None record ed. Lab None record ed. Referral None record ed. Procedures None record ed. Surgeries None record ed. Imaging None record ed. Medication Orders None record ed. Patient TargetsNo targets recorded. Patient InstructionsNo instructions recorded. Reason for Referral None Reported. Problems No Known Problems Procedures Surgical History Date Name Laterality Status Provider Name and Address Organization Details Recorded Time 11/20/19 Date of Last Colonoscopy completed SKIP GRANGER DO [address], [id number], [facility] 04/05/2023 13:45:53 ligation of fallopian tube completed SKIP GRANGER DO 175 [facility], [address] [place] [address], [phone], [facility] 04/05/2023 13:46:39 tuboplasty for sterilization reversal completed SKIP GRANGER DO 175 [facility], [address] [place] [address], [phone], [facility] 04/05/2023 13:46:53 Imaging Results None recorded. Procedure Notes None recorded. Medical Equipment None Reported. Allergies Allergen ID Allergen Name Allergen Category Reaction Reaction Severity Criticality Documentation Date Start Date Code Code System Note Provider Name and Address Organization Details Recorded Time [id number] codeine medicatio n Not available Not available Not available 04/05/2023 2670 RxNorm Cheryl klein, [facility] 3 13:27:11 [id number] morphine medicatio n Not available Not available Not available 04/05/2023 7052 RxNorm Cheryl klein, [facility] 3 13:27:45 [id number] ibuprofen medicatio n Not available Not available Not available 04/05/2023 5640 RxNorm Cheryl lkein, [facility] 13:27:57 Medications Name Sig Start Date Stop Date Status Note LastModified by Organization Details LastModified Time citalopram 20 mg tablet TAKE 1 AND 1/2 TABLETS BY MOUTH EVERY DAY active Not Available Not Available No t Available lorazepam 0.5 mg tablet TAKE ONE-HALF TO 1 TABLET BY MOUTH TWICE DAILY NEEDED FOR ANXIETY DUE TO AIR TRAVEL active Not Available Not Available No t Available simvastatin 20 mg tablet TAKE 1 TABLET BY MOUTH EVERY DAY active Not Available Not Available No t Available atenolol 50 mg tablet TAKE 1 TABLET BY MOUTH EVERY DAY active Not Available Not Available No t Available D3-2000 active Not Available Not Avail able Not Available ICaps AREDS2 active Not Available Not Available Not Available BinaxNOW COVID-19 Ag Self Test kit TEST DIRECTED TODAY active Not Available Not Available No t Available Vitals Date Recorded Body height Body mass index (BMI) Body weight Systolic blood pressure Diastolic blood pressure Provider Name and Address Organization Details Last Updated DateTime 04/05/2023 160.02 cm 26.9 kg/m2 03814.04 g 116 mm[Hg] 70 mm[Hg] Cheryl Rangel [facility] 3 13:25:53 Social History Question Answer Notes LastModified by Organizat ion Details LastModified Time Tobacco Smoking Status Former Smoker Cheryl klein, [facility] 04/05/2023 14:11:18 What Is Your Level Of Alcohol Consumption? Moderate [email or web address] Information not available 04/05/2023 Are You Currently Employed? No [email or web address] Information not available 04/05/2023 How Many Years Have You Smoked Tobacco? 15 Quit 35 Years Ago [email or web address] Information not available 04/05/2023 Sex: Unknown Functional Status None recorded. Mental Status None recorded. Family History Relationship Description Onset Age of this Age Resolved Age Notes LastModified by Organization Details LastModified Time Mother Malignant tumor of colon 68 68 [email or web address] Not available 03/21 13:45:23 Mother Hypothyroidi sm [email or web address] Not available 2022 14:09:55 Mother Hypercholest erolemia [email or web address] Not available 2022 14:10:13 Brother Malignant tumor of colon [email or web address] Not available 2022 14:09:24 Medical History Condition Response Other N *No Diseases or Conditions N Blood clots N Breast Cancer N Colon cancer N Benign breast disease N Depression Y Lung Disease N Defects or Inherited Disease N Anesthesia Complications N BrCa gene tested? N Headaches/Migraines N Have you ever been on isolation N Anxiety Disorder N Arthritis N HSV N Infertility N Interstitial Cystitis N Abnormal pap N Acid Reflux (GERD) N Cancer N Stroke N Endometriosis N Fibromyalgia N Spina Bifida N HIV N Heart Problems Y Sexual Dysfunction N Autoimmune disorder N Kidney or Bladder Problems N Thyroid Problems N GI Problems N Eating Disorder N Anemia N Multiple Sclerosis N Psychiatric Illness N Ovarian Cancer N Diabetes N Blood Transfusions N Bladder disease N History of MRSA N Abnormal Uterine Bleeding N Hyperlipidemia Y BrCa positive N Diverticulitis N Abuse/Domestic Violence N Asthma N Hepatitis N Hypertension N Osteoporosis N Thrombophilias N Gynecological History Statement/Question Response Current Control Method Tubal Ligat ion Date of Last Colonoscopy 11/20/2019 Date of LMP 08/21/2007 Obstetrics History GPAL:G 3 P 3 0 0 3 Type Value Full Term 3 Living 3 Total 3 Past Encounters Encounter ID Performer Location Encounter Start Date Encounter Closed Date Diagnosis/Indication Diagnosis SNOMED-CT Code Diagnosis ICD10 Code Diagnosis Note [id number] SKIP GRANGER, [facility] [place] [address] 04/05/2023 13:06:26 04/07/2023 11:16:40 Menopausal symptom 48717355 N95.1 Patient wants to review options for treatment of her VMS. Reviewed all options: observatio n, OTC meds, Bio-Identi cals, SSRIs and HRT. Reviewed risks/bene fits at length including but not limited to blood clots, IL, DVT, PE, stroke and with HRT. Patient wants to try and find a provider who does Bio-Identi cals. We searched some names on-line and she will reach out to them. She will try that and then will monitor and call if worsening symptoms. If they do, then she may opt for Bijuva which is an FDA Approved Bio-Identi [place] med. We discussed this at length today so if she calls we can call it in (no need for another OV). She will also schedule an ANNUAL Exam.All questions were answered to the patient's satisfacti on. Total Time on date of the encounter: 45 minutes Obtain a patient history and/or review a separately obtained history: 15 minutes Reviewing patient? s lab/radiol ogy/test results: 5 minutes Examining the patient: 5 minutes Discussing Treatment options with patient/fa wilver/careg iver: 10 minutes Counseling and education of the patient/fa wilver/careg iver: 5 minutes Updating/d ocumenting clinical informatio n in the patient? s medical record: 5 minutes Health Concerns Section Related Observation LastModified by Organization Detai ls LastModified Time None Recorded Concern Status LastModified by Organization Details LastModified Time None Recorded Advance Directives Directive None Recorded Payers Encounter Date Sequence Insurance Name Policy Number Policy [place] Covered Member ID [place] Member ID Guarantor Name 04/05/2023 1 [employer] [facility] (MEDICARE REPLACEMENT HMO) Lelo Deepika [id number] Lelo Poe Notes Date Note Type Note Provider Name and Address Organization Details Recorded Time 04/05/2023 text/html Patient here to discuss her VMS. SKIP GRANGER, DO [address] [place] [address], [address] Floor, [place], [address], [place] [facility] 04/05/2023 15:28:54 OBGyn Episode Ob Episode Information Episode Created Date Number of Fetuses Patient Bloodtype Patient rh Status Prepregnancy Weight lbs Domestic Partner Domestic Partner Phone Father Name Branch Administrator Status 04/05/20 23 1 CLOSED Fetus Data First Name Last Name Admitted to NICU Weight (g) Sex Living Outcome Pediatric Complications Fetus ID Race Codes Race Delivery Type 2891.64 9 F Full Term [id number] Vaginal Delivery Quinten Calculation Initial Quinten Date Initial Exam Date Initial Exam Provider Initial Ultrasound Date Last Menstrual Period Date Ultra Sound Weeks Gestation 0 Eighteen To Twenty Week Quinten Update Ultra Sound Date Fundal Height At Umbil Quickening Date Ultra Sound Latest Weeks Gestation Final Quinten Confirmed By Final Quinten Confirmed Date Final Quinten Date Ultra Sound Latest Days Gestation 0 0 Menstrual History Last Menstrual Date Menses Monthly On Bcp Conception Prior Menses Frequency Hcg Plus Date Menarche Onset Age Delivery Information Delivery Date Delivery Type Labor Anesthesia Weeks Gestation Incision Type Labor Labor Length Hrs Delivered By Post Complications Tubal Sterilization Discharge Date Comments 8 5 Discharge Information Feeding Method Contraceptive Method Maternal HG B and HCT Levels Ob Episode Information Episode Created Date Number of Fetuses Patient Bloodtype Patient rh Status Prepregnancy Weight lbs Domestic Partner Domestic Partner Phone Father Name Branch Administrator Status 04/05/20 23 1 CLOSED Fetus Data First Name Last Name Admitted to NICU Weight (g) Sex Living Outcome Pediatric Complications Fetus ID Race Codes Race Delivery Type 3685.43 5 M Full Term [id number] Vaginal Delivery Quinten Calculation Initial Quinten Date Initial Exam Date Initial Exam Provider Initial Ultrasound Date Last Menstrual Period Date Ultra Sound Weeks Gestation 0 Eighteen To Twenty Week Quinten Update Ultra Sound Date Fundal Height At Umbil Quickening Date Ultra Sound Latest Weeks Gestation Final Quinten Confirmed By Final Quinten Confirmed Date Final Quinten Date Ultra Sound Latest Days Gestation 0 0 Menstrual History Last Menstrual Date Menses Monthly On Bcp Conception Prior Menses Frequency Hcg Plus Date Menarche Onset Age Delivery Information Delivery Date Delivery Type Labor Anesthesia Weeks Gestation Incision Type Labor Labor Length Hrs Delivered By Post Complications Tubal Sterilization Discharge Date Comments 6 5 Discharge Information Feeding Method Contraceptive Method Maternal HG B and HCT Levels Ob Episode Information Episode Created Date Number of Fetuses Patient Bloodtype Patient rh Status Prepregnancy Weight lbs Domestic Partner Domestic Partner Phone Father Name Branch Administrator Status 04/05/20 23 1 CLOSED Fetus Data First Name Last Name Admitted to NICU Weight (g) Sex Living Outcome Pediatric Complications Fetus ID Race Codes Race Delivery Type 2976.47 0704 M Full Term [id number] Vaginal Delivery Quinten Calculation Initial Quinten Date Initial Exam Date Initial Exam Provider Initial Ultrasound Date Last Menstrual Period Date Ultra Sound Weeks Gestation 0 Eighteen To Twenty Week Quinten Update Ultra Sound Date Fundal Height At Umbil Quickening Date Ultra Sound Latest Weeks Gestation Final Quinten Confirmed By Final Quinten Confirmed Date Final Quinten Date Ultra Sound Latest Days Gestation 0 0 Menstrual History Last Menstrual Date Menses Monthly On Bcp Conception Prior Menses Frequency Hcg Plus Date Menarche Onset Age Delivery Information Delivery Date Delivery Type Labor Anesthesia Weeks Gestation Incision Type Labor Labor Length Hrs Delivered By Post Complications Tubal Sterilization Discharge Date Comments 0 5 Discharge Information Feeding Method Contraceptive Method Maternal HG B and HCT Levels
--- OUTSIDE RECORDS SUMMARY | 2024-10-30 10:56 | XMS_ITS | Data Portability ---
Author Organization [facility], , [facility] Address [address] [place] [address] Care Team Providers Care Gold Miner Blasting Name Role Phone BO ALDRIDGE Orthopedist DINORA SHAH Stem Processing Machine Operator UMER BROCK Steamtable Worker KATE DE LA O Director Corporate Communications Assessment No assessment recorded. Plan of Treatment Reminders Order Date Submit Date Provider Last Modified By Organization Details Last Modified Time Details Appointments Waqas Garcia nt-30 2024 03:30P FELIX COX Not available Not available Not available Lab TSH, serum or plasm a 2022 023 [facility], [address] [place] [address], [id number], 10/18/2022 11:43:47 CBC 2022 023 [facility], [address] [place] [address], [id number], 10/18/2022 09:55:17 HbA1c (hemo globi n A1c), blood 2021 022 [facility], [address] [place] [address], [id number], 10/18/2022 09:24:40 BMP, serum or plasm a 2021 022 [facility], [address] [place] [address], [id number], 10/18/2022 11:09:20 lipid panel , serum 2021 022 [facility], [address] [place] [address], [id number], 10/18/2022 11:09:21 pap, LB + HPV - if HPV posit monty refle x to HPV subty ping 2021 [facility] (Pathology), [address], [place], [address], 04/28/2022 11:40:02 TSH, serum or plasm a 2021 022 [facility], [address] [place] [address], [id number], 04/14/2022 12:33:20 T4, free, serum 2021 022 [facility], [address] [place] [address], [id number], 04/14/2022 12:08:02 T3, free, serum or plasm a 2021 022 [facility], [address] [place] [address], [id number], 04/15/2022 11:36:47 CBC 2021 022 [facility], [address] [place] [address], [id number], 04/14/2022 09:19:07 brendon tin, serum or plasm a 2021 022 [facility], [address] [place] [address], 15[address], 04/14/2022 12:08:03 CMP, serum or plasm a 2021 022 [facility], [address] [place] [address], [id number], 04/14/2022 14:22:54 vitam in B12, serum 2021 022 [facility], [address] [place] [address], [id number], 04/18/2022 14:01:03 HbA1c (hemo globi n A1c), blood 2020 021 [facility], [address] [place] [address], [id number], 05/12/2021 10:42:33 lipid panel , serum - 3 mo 2020 021 [facility], [address] [place] [address], [id number], 02/23/2022 18:34:06 hepat ic funct ion panel , serum 2020 021 [facility], [address] [place] [address], [id number], 05/12/2021 11:17:23 Referral sleep medic ine refer [facility] - EVANGELINAOR 16 2021 022 [email or web address] Sleep Medicine Services [facility], [address], [address], [place], [address], 04/16/2022 11:09:18 Procedures None recor ded. Surgeries None recor ded. Imaging elect ashwini lincoln am 2022 023 [facility], [address] [place] [address], [id number], 10/17/2022 17:36:01 bone densi ty 2021 022 [facility] (Imaging), [address], [place], [address], 12/15/2022 12:55:09 Medication Orders Zithr omax Z-Boy 250 mg table t 2021 022 [id number], [address] [place] [address], [id number], 04/13/2022 08:09:48 Patient Targets Encounter Date Encounter Id Patient Goals Patient Target Last Modified By Organization Details Last Modified Time Will Rx for sinus infection , call or return if not improving [email or web address] Not available 10/03/2021 13:41:41 Patient Instructions Encounter Date Encounter Id Patient Instructions Last Modified By Organization Details Last Modified Time 05/11/2021 [id number] well visit, women 50 to 65: care instructions alice Not available 05/11/2021 16:05:58 After a discussion of treatment options, which included consideration of best practices, patient preferences, and the patient? s individual lifestyle and treatment goals, as well as consideration and attempted mitigation of any barriers to meeting the patient? s goals, the following treatment plan and objectives were adopted: - personal health goals: work on lifestyle changes to improve blood sugar. start biking (with a helmet) - exercise 30 minutes, 5 days a week - balanced diet with lean protein, whole grains, veggies, fruit - 7-8 hours of sleep a night - 7-8 glasses of water a day - sunscreen in the sun, regular skin/tick checks - brush teeth at least twice a day - regular dental and eye exams - MM in 3 months with fasting labs prior - wellness visit in 1 year [email or web address] Not available 05/11/2021 16:08:50 10/17/2022 [id number] After a discussion of treatment and medication options, which included consideration of the best practices in medicine, a medical plan was provided. The patient's opinions and concerns were included in this treatment plan and goal. 1. BP at goal, will continue current meds 2. will check TSH and CBC - and will have holter because EKG showed regular irregular pattern with skipped beats, pt asyptomatic currently 3. activity as tolerated, will start symptom diary athome 4. will keep appt with ELIZABETH lucretia Not available 10/17/2022 21:30:04 Reason for Referral Sleep Medicine Referral for Daytime somnolence EPWORTH 16 Referring Physician: Gunjan Kapoor, Family Medicine, Encounter Date: 04/13/2022 Results Created Date Observation Date Name Description Value Unit Range Abnormal Flag Note LastModifiedBy Organization Detail LastModifiedTime 05/04/20 21 05/04/2021 LIPID PANEL cholesterol 226 mg/dL <200 mg/dl Maxi able 200-2 39 mg/dl Borde rline High >240 mg/dl High Not Available [address], [address], 05/04/2021 10:26:29 05/04/20 21 05/04/2021 LIPID PANEL triglyceride s 150 mg/dL <150 mg/dL Sagrario l 150-1 99 mg/dL Borde rline High 200-4 99 mg/dL High >500 mg/dL Very High Not Available [address], [address], 05/04/2021 10:26:29 05/04/20 21 05/04/2021 LIPID PANEL direct HDL 41 mg/dL <40 mg/dl - Major Risk for CHD >60 mg/dl - Negat monty Risk for CHD Not Available [address], [address], 05/04/2021 10:26:29 05/04/20 21 05/04/2021 GLUCO SE glucose 119 mg/dL 70-100 high Not Available [address], [address], 05/04/2021 10:26:30 05/04/20 21 05/04/2021 LDL - CALCU LATED LDL - calculated 155.0 RISK CATEG ORY LDL GOAL _ CHD or CHD Risk Equiv alent s <100 mg/dl (10-y ear risk >20%) 2+ Risk Facto rs <130 mg/dl (10-y ear risk <= 20%) 0-1 Risk Facto r??? <160 mg/dl ??? Almos t all peopl e with 0-1 risk facto r have a 10 year risk <10%, thus 10 year risk asses ment in peopl e with 0-1 risk facto r is not neces chaz. Not Available [address], [address], 05/04/2021 10:26:31 05/04/2005/04/2021 TSH TSH 3.96 uIU/m L 0.50-6 .00 The Ameri can Colle ge of Endoc rinol ogy and Ameri can Thyro id Assoc iatio n recom mend goal TSH value s betwe en 0.4-4 .0 mIU/m L. Not Available [address], [address], 05/04/2021 11:12:56 05/11/2005/12/2021 HGB A1C hemoglobin A1C 6.2 % 4.8-6. 0 high Goal: <7% in Patie nts with Diabe ty An A1c betwe en 5.7-6 .4% is ident ified as pre-d iabet es and sugge sts risk for progr essio n to diabe ty Two a1c value s of 6.5% or highe r is consi stent with a diagn osis of diabe ty but may need furth er confi rmati on Not Available [address], [address], 05/12/2021 10:42:33 05/11/2005/12/2021 HGB A1C estimated average glucose 131.2 mg/dL Not Available [address], [address], 05/12/2021 10:42:33 05/11/2005/12/2021 HEPAT IC FUNCT ION PANEL total protein 6.8 g/dL 6.4-8. 2 Not Available [address], [address], 05/12/2021 11:17:23 05/11/20 21 05/12/2021 HEPAT IC FUNCT ION PANEL albumin 3.8 g/dL 3.4-5. 0 Not Available [address], [address], 05/12/2021 11:17:23 05/11/20 21 05/12/2021 HEPAT IC FUNCT ION PANEL globulin 3.0 g/dL Not Available [address], [address], 05/12/2021 11:17:23 05/11/2005/12/2021 HEPAT IC FUNCT ION PANEL A/G 1.3 ratio 0.8-2. 0 Not Available [address], [address], 05/12/2021 11:17:23 05/11/2005/12/2021 HEPAT IC FUNCT ION PANEL total bilirubin 0.40 mg/dL 0.00-1 .00 Not Available [address], [address], 05/12/2021 11:17:23 05/11/2005/12/2021 HEPAT IC FUNCT ION PANEL direct bilirubin 0.10 mg/dL 0.00-0 .30 Not Available [address], [address], 05/12/2021 11:17:23 05/11/2005/12/2021 HEPAT IC FUNCT ION PANEL AST 18 U/L 0-37 Not Available [address], [address], 05/12/2021 11:17:23 05/11/2005/12/2021 HEPAT IC FUNCT ION PANEL ALT 30 U/L 6-63 Not Available [address], [address], 05/12/2021 11:17:23 05/11/2005/12/2021 HEPAT IC FUNCT ION PANEL alk. phos. 81 U/L 50-136 Not Available [address], [address], 05/12/2021 11:17:23 02/19/2002/18/2022 HGB A1C hemoglobin A1C 6.1 % 4.8-6. 0 high Goal: <7% in Patie nts with Diabe ty An A1c betwe en 5.7-6 .4% is ident ified as pre-d iabet es and sugge sts risk for progr essio n to diabe ty Two a1c value s of 6.5% or highe r is consi stent with a diagn osis of diabe ty but may need furth er confi rmati on Not Available [address], [address], 02/18/2022 12:40:11 02/19/20 22 02/18/2022 HGB A1C estimated average glucose 128.4 mg/dL Not Available [address], [address], 02/18/2022 12:40:11 02/19/20 22 02/23/2022 LIPID PANEL cholesterol 205 mg/dL <200 mg/dl Maxi able 200-2 39 mg/dl Borde rline High >240 mg/dl High Not Available [address], [address], 02/23/2022 18:34:06 02/19/20 22 02/23/2022 LIPID PANEL triglyceride s 124 mg/dL <150 mg/dL Sagrario l 150-1 99 mg/dL Borde rline High 200-4 99 mg/dL High >500 mg/dL Very High Not Available [address], [address], 02/23/2022 18:34:06 02/19/20 22 02/23/2022 LIPID PANEL direct HDL 41 mg/dL <40 mg/dl - Major Risk for CHD >60 mg/dl - Negat monty Risk for CHD Not Available [address], [address], 02/23/2022 18:34:06 02/19/20 22 02/23/2022 GLUCO SE glucose 105 mg/dL 70-100 high Not Available [address], [address], 02/23/2022 18:34:07 02/19/20 22 02/23/2022 LDL - CALCU LATED LDL - calculated 139.2 RISK CATEG ORY LDL GOAL _ CHD or CHD Risk Equiv alent s <100 mg/dl (10-y ear risk >20%) 2+ Risk Facto rs <130 mg/dl (10-y ear risk <= 20%) 0-1 Risk Facto r??? <160 mg/dl ??? Almos t all peopl e with 0-1 risk facto r have a 10 year risk <10%, thus 10 year risk asses ment in peopl e with 0-1 risk facto r is not favina ware. Not Available [address], [address], 02/23/2022 18:34:08 04/14/20 22 04/14/2022 CBC WBC 4.87 K/??L 3.98-1 0.04 Not Available [address], [address], 04/14/2022 09:19:07 04/14/20 22 04/14/2022 CBC RBC 4.63 M/??L 3.93-5 .22 Not Available [address], [address], 04/14/2022 09:19:07 04/14/20 22 04/14/2022 CBC HGB 14.1 g/dL 11.2-1 5.7 Not Available [address], [address], 04/14/2022 09:19:07 04/14/20 22 04/14/2022 CBC HCT 43.0 % 34.1-4 4.9 Not Available [address], [address], 04/14/2022 09:19:07 04/14/20 22 04/14/2022 CBC MCV 92.9 fL 79.4-9 4.8 Not Available [address] [place], [address], 04/14/2022 09:19:07 04/14/20 22 04/14/2022 CBC MCH 30.5 pg 25.6-3 2.2 Not Available [address], [address], 04/14/2022 09:19:07 04/14/20 22 04/14/2022 CBC MCHC 32.8 g/dL 32.2-3 5.5 Not Available [address], [address], 04/14/2022 09:19:07 04/14/20 22 04/14/2022 CBC plt 238 K/??L 182-36 9 Not Available [address], [address], 04/14/2022 09:19:07 04/14/20 22 04/14/2022 CBC MPV 10.7 fL 9.4-12 .3 Not Available [address], [address], 04/14/2022 09:19:07 04/14/20 22 04/14/2022 CBC neut% 43.6 % 34.0-7 1.1 Not Available [address], [address], 04/14/2022 09:19:07 04/14/20 22 04/14/2022 CBC neut# 2.12 1.56-6 .13 Not Available [address], [address], 04/14/2022 09:19:07 04/14/20 22 04/14/2022 CBC lymph % 42.9 % 19.3-5 1.7 Not Available [address], [address], 04/14/2022 09:19:07 04/14/20 22 04/14/2022 CBC lymph # 2.09 K/??L 1.18-3 .74 Not Available [address], [address], 04/14/2022 09:19:07 04/14/20 22 04/14/2022 CBC mono% 9.0 % 4.7-12 .5 Not Available [address], [address], 04/14/2022 09:19:07 04/14/20 22 04/14/2022 CBC mono# 0.44 0.24-0 .56 Not Available [address], [address], 04/14/2022 09:19:07 04/14/20 22 04/14/2022 CBC eo% 3.5 % 0.7-5. 8 Not Available [address], [address], 04/14/2022 09:19:07 04/14/20 22 04/14/2022 CBC eo# 0.17 0.04-0 .36 Not Available [address], [address], 04/14/2022 09:19:07 04/14/20 22 04/14/2022 CBC baso% 0.8 % 0.1-1. 2 Not Available [address], [address], 04/14/2022 09:19:07 04/14/20 22 04/14/2022 CBC baso# 0.04 0.00-0 .08 Not Available [address], [address], 04/14/2022 09:19:07 04/14/20 22 04/14/2022 CBC RDW-CV 12.9 % 11.7-1 4.4 Not Available [address], [address], 04/14/2022 09:19:07 04/14/20 22 04/14/2022 CBC Ig% 0.200 % 0.000- 1.500 Ig % >0.5 Indic ates possi ble Left Shift Not Available [address], [address], 04/14/2022 09:19:07 04/14/20 22 04/14/2022 CBC Ig# 0.010 0.000- 0.093 Not Available [address], [address], 04/14/2022 09:19:07 04/14/20 22 04/14/2022 CBC NRBC% 0.0 % 0.0-0. 2 Not Available [address], [address], 04/14/2022 09:19:07 04/14/20 22 04/14/2022 CBC NRBC# 0.000 0.000- 0.012 Not Available [address], [address], 04/14/2022 09:19:07 04/14/20 22 04/14/2022 FREE T4 free T4 0.92 NG/dL 0.75-1 .54 Not Available [address], [address], 04/14/2022 12:08:02 04/14/20 22 04/14/2022 BRENDON TIN ferritin 94 NG/mL 15-200 Not Available [address], [address], 04/14/2022 12:08:02 04/14/20 22 04/14/2022 TSH TSH 3.32 uIU/m L 0.50-6 .00 The Ameri can Colle ge of Endoc rinol ogy and Ameri can Thyro id Assoc iatio n recom mend goal TSH value s betwe en 0.4-4 .0 mIU/m L. Not Available [address], [address], 04/14/2022 12:33:20 04/14/20 22 04/14/2022 COMP. METAB OLIC PANEL glucose 105 mg/dL 70-100 high Not Available [address], [address], 04/14/2022 14:22:54 04/14/20 22 04/14/2022 COMP. METAB OLIC PANEL BUN 10 mg/dL 7-18 Not Available [address], [address], 04/14/2022 14:22:54 04/14/20 22 04/14/2022 COMP. METAB OLIC PANEL creatinine 0.9 mg/dL 0.8-1. 3 Not Available [address], [address], 04/14/2022 14:22:54 04/14/20 22 04/14/2022 COMP. METAB OLIC PANEL B/C 11.1 ratio Not Available [address], [address], 04/14/2022 14:22:54 04/14/20 22 04/14/2022 COMP. METAB OLIC PANEL GFR >=60ML /MIN mL/mi n normal >=60m L/min - Sagrario l or midly reduc ed <60mL /min- Decre ased kidne y funct ion <15mL /min - Kidne y failu re [facility] calcu lates estim ated Glome rular Filtr ation Rate (eGFR ) using the Chron ic Kidne y Disea se Epide miolo gy Colla borat ion (CKD- EPI) Equat ion (Tamara r et. al 2020) as recom jesus d by the Natio nal Kidne y Found ation . eGFR is based on age, serum creat inine , and sex. CKD-E PI does not calcu late eGFR by race, does not apply to child luba (age <18 years ), and shoul d not be used in pregn christin. Not Available [address], [address], 04/14/2022 14:22:54 04/14/20 22 04/14/2022 COMP. METAB OLIC PANEL sodium 139 mmol/ L 136-14 5 Not Available [address], [address], 04/14/2022 14:22:54 04/14/20 22 04/14/2022 COMP. METAB OLIC PANEL potassium 4.6 mmol/ L 3.5-5. 1 Not Available [address], [address], 04/14/2022 14:22:54 04/14/20 22 04/14/2022 COMP. METAB OLIC PANEL chloride 102 mmol/ L 96-107 Not Available [address], [address], 04/14/2022 14:22:54 04/14/20 22 04/14/2022 COMP. METAB OLIC PANEL anion gap 6.2 5.0-15 .0 Not Available [address], [address], 04/14/2022 14:22:54 04/14/20 22 04/14/2022 COMP. METAB OLIC PANEL CO2 31 mmol/ L 21-32 Not Available [address], [address], 04/14/2022 14:22:54 04/14/20 22 04/14/2022 COMP. METAB OLIC PANEL calcium 8.6 mg/dL 8.5-10 .3 Not Available [address], [address], 04/14/2022 14:22:54 04/14/20 22 04/14/2022 COMP. METAB OLIC PANEL total protein 6.4 g/dL 6.4-8. 2 Not Available [address], [address], 04/14/2022 14:22:54 04/14/20 22 04/14/2022 COMP. METAB OLIC PANEL albumin 3.6 g/dL 3.4-5. 0 Not Available [address], [address], 04/14/2022 14:22:54 04/14/20 22 04/14/2022 COMP. METAB OLIC PANEL globulin 2.8 g/dL Not Available [address], [address], 04/14/2022 14:22:54 04/14/20 22 04/14/2022 COMP. METAB OLIC PANEL A/G 1.3 ratio 0.8-2. 0 Not Available [address], [address], 04/14/2022 14:22:54 04/14/20 22 04/14/2022 COMP. METAB OLIC PANEL total bilirubin 0.60 mg/dL 0.00-1 .00 Not Available [address], [address], 04/14/2022 14:22:54 04/14/20 22 04/14/2022 COMP. METAB OLIC PANEL AST 13 U/L 0-37 Not Available [address], [address], 04/14/2022 14:22:54 04/14/20 22 04/14/2022 COMP. METAB OLIC PANEL ALT 24 U/L 6-63 Not Available [address], [address], 04/14/2022 14:22:54 04/14/20 22 04/14/2022 COMP. METAB OLIC PANEL alk. phos. 69 U/L 50-136 Not Available [address], [address], 04/14/2022 14:22:54 04/14/20 22 04/15/2022 FREE T3 free T3 2.1 pg/mL 2.0-4. 9 Not Available [address], [address], 04/15/2022 11:36:47 04/14/20 22 04/18/2022 VITAM IN B12 vitamin B12 437 pg/mL 230-10 50 Not Available [facility] [address], [place], [address], 04/18/2022 14:01:03 04/21/20 22 04/28/2022 PAP SMEAR path report [facility] [address] [place] [address] Lab Direc tor: Cheryl cifuentes MD HAZARDOUS SUBSTANCES SCIENTIST Cytol ogy Repor t Acces nicole #: [id number] FINAL DIAGN OSIS A. PAP SMEAR (SURE PATH) CE: SPECI MEN ADEQU ACY: Satis facto ry for evalu ation ; trans forma tion zone prese nt. Evalu ation limit ed by scant clau rader. INTER PRETA TION: NEGAT MONTY FOR INTRA EPITH ELILISA Thrasher OR ISIDRA VILLANUEVA . Elect aric hernandez Joyce d Out By: Maritza Mills [facility], [place]( CP) The Pap test is a scree osmany test prima rily for squam ous cance rs and precu rsors and has assoc iated false -nega tive and false -posi tive resul ts. New techn ologi es such as liqui d-bas ed prepa ratio ns may decre ase but will not elimi gus all false -nega tive resul ts. Regul ar sampl ing and follo w-up of unexp cami d clini leticia signs and sympt oms are recom jesus d to minim ize false negat monty resul ts. PROCE DURES /ADDE NDA HPV Testi ng (Requ ested ) Order ed Date: 022 A. PAP SMEAR (SURE PATH) CE: Human Papil pili Virus Test Negat monty for high- risk human papil lomav irus types 16, 18, 45 and the Othe r high risk probe set (Incl udes 31, 33, 35, 39, 51, 52, 56, 58, 59, 66, 68) by Pavan tobias Oncben hutchison HR-HP V nilam sis. Clini leticia corre latio n is advis ed. This HPV test was perfo rmed at [facility], [address] [place] [facility]. This test has been FDA appro gaston for SureP ath cervi leticia cytol ogy speci mens. The accur acy and preci nicole of this test for all other speci men sourc es has been verif ied in the Cytop athol ogy Labor atory of the [facility] and has not been clear ed or appro gaston by the U.S. Food and Drug Admin istra tion. Clini leticia corre latio n is advis ed. Jocelin ctron icall y Joyce d Out By: Fab Steele on 09:28 CLINI LETICIA HISTO RY Date of Last Menst rual Perio d: Not Provi ded Menst rual Histo ry: Unkno wn Other Clini leticia Condi tions : Scree osmany Pap SPECI MEN SOURC E A: PAP SMEAR (SURE PATH) CE Patie nt Name: ANN MARIE MICHEL : 9[birth year] (Age: 66) Sex: F 1 Insti tutio n: [facility] Locat ion: [facility] Date of Colle ction : Date of Acces nicole: Repor melvin: 11:18 Resul ts to: Perla matos OIL BURNER JOURNEYMAN Not Available [facility] (Outpatient) [address] [place], [address], 04/28/2022 11:40:02 10/18/19 23 10/18/2022 HGB A1C hemoglobin A1C 6.0 % 4.8-6. 0 Goal: <7% in Patie nts with Diabe ty An A1c betwe en 5.7-6 .4% is ident ified as pre-d iabet es and sugge sts risk for progr essio n to diabe ty Two a1c value s of 6.5% or highe r is consi stent with a diagn osis of diabe ty but may need furth er confi rmati on Not Available [address], [address], 10/18/2022 09:24:40 10/18/19 23 10/18/2022 HGB A1C estimated average glucose 125.5 mg/dL Not Available [address], [address], 10/18/2022 09:24:40 10/18/19 23 10/18/2022 CBC WBC 4.91 K/??L 3.98-1 0.04 Not Available [address], [address], 10/18/2022 09:55:17 10/18/19 23 10/18/2022 CBC RBC 4.46 M/??L 3.93-5 .22 Not Available [address], [address], 10/18/2022 09:55:17 10/18/19 23 10/18/2022 CBC HGB 13.8 g/dL 11.2-1 5.7 Not Available [address], [address], 10/18/2022 09:55:17 10/18/19 23 10/18/2022 CBC HCT 41.5 % 34.1-4 4.9 Not Available [address], [address], 10/18/2022 09:55:17 10/18/19 23 10/18/2022 CBC MCV 93.0 fL 79.4-9 4.8 Not Available [address], [address], 10/18/2022 09:55:17 10/18/19 23 10/18/2022 CBC MCH 30.9 pg 25.6-3 2.2 Not Available [address], [address], 10/18/2022 09:55:17 10/18/19 23 10/18/2022 CBC MCHC 33.3 g/dL 32.2-3 5.5 Not Available [address], [address], 10/18/2022 09:55:17 10/18/19 23 10/18/2022 CBC plt 244 K/??L 182-36 9 Not Available [address], [address], 10/18/2022 09:55:17 10/18/19 23 10/18/2022 CBC MPV 10.4 fL 9.4-12 .3 Not Available [address], [address], 10/18/2022 09:55:17 10/18/19 23 10/18/2022 CBC neut% 48.6 % 34.0-7 1.1 Not Available [address], [address], 10/18/2022 09:55:17 10/18/19 23 10/18/2022 CBC neut# 2.39 1.56-6 .13 Not Available [address], [address], 10/18/2022 09:55:17 10/18/1910/18/2022 CBC lymph % 38.5 % 19.3-5 1.7 Not Available [address], [address], 10/18/2022 09:55:17 10/18/19 23 10/18/2022 CBC lymph # 1.89 K/??L 1.18-3 .74 Not Available [address], [address], 10/18/2022 09:55:17 10/18/19 23 10/18/2022 CBC mono% 8.4 % 4.7-12 .5 Not Available [address], [address], 10/18/2022 09:55:17 10/18/1910/18/2022 CBC mono# 0.41 0.24-0 .56 Not Available [address], [address], 10/18/2022 09:55:17 10/18/1910/18/2022 CBC eo% 3.7 % 0.7-5. 8 Not Available [address], [address], 10/18/2022 09:55:17 10/18/1910/18/2022 CBC eo# 0.18 0.04-0 .36 Not Available [address], [address], 10/18/2022 09:55:17 10/18/1910/18/2022 CBC baso% 0.6 % 0.1-1. 2 Not Available [address], [address], 10/18/2022 09:55:17 10/18/1910/18/2022 CBC baso# 0.03 0.00-0 .08 Not Available [address], [address], 10/18/2022 09:55:17 10/18/1910/18/2022 CBC RDW-CV 13.1 % 11.7-1 4.4 Not Available [address], [address], 10/18/2022 09:55:17 10/18/1910/18/2022 CBC Ig% 0.200 % 0.000- 1.500 Ig % >0.5 Indic ates possi ble Left Shift Not Available [address], [address], 10/18/2022 09:55:17 10/18/19 23 10/18/2022 CBC Ig# 0.010 0.000- 0.093 Not Available [address], [address], 10/18/2022 09:55:17 10/18/19 23 10/18/2022 CBC NRBC% 0.0 % 0.0-0. 2 Not Available [address], [address], 10/18/2022 09:55:17 10/18/19 23 10/18/2022 CBC NRBC# 0.000 0.000- 0.012 Not Available [address], [address], 10/18/2022 09:55:17 10/18/19 23 10/18/2022 BASIC METAB OLIC PANEL glucose 139 mg/dL 70-100 high Not Available [address], [address], 10/18/2022 11:09:20 10/18/19 23 10/18/2022 BASIC METAB OLIC PANEL BUN 8 mg/dL 7-18 Not Available [address], [address], 10/18/2022 11:09:20 10/18/19 23 10/18/2022 BASIC METAB OLIC PANEL creatinine 0.9 mg/dL 0.8-1. 3 Not Available [address], [address], 10/18/2022 11:09:20 10/18/19 23 10/18/2022 BASIC METAB OLIC PANEL B/C 8.9 ratio Not Available [address], [address], 10/18/2022 11:09:20 10/18/19 23 10/18/2022 BASIC METAB OLIC PANEL GFR >=60ML /MIN mL/mi n normal >=60m L/min - Sagrario l or midly reduc ed <60mL /min- Decre ased kidne y funct ion <15mL /min - Kidne y failu re [facility] calcu lates estim ated Glome rular Filtr ation Rate (eGFR ) using the Chron ic Kidne y Disea se Epide miolo gy Colla borat ion (CKD- EPI) Equat ion (Suzannae r et. al 2020) as recom jesus d by the Natio nal Kidne y Found ation . eGFR is based on age, serum creat inine , and sex. CKD-E PI does not calcu late eGFR by race, does not apply to child luba (age <18 years ), and shoul d not be used in pregn christin. Not Available [address], [address], 10/18/2022 11:09:20 10/18/19 23 10/18/2022 BASIC METAB OLIC PANEL sodium 142 mmol/ L 136-14 5 Not Available [address], [address], 10/18/2022 11:09:20 10/18/19 23 10/18/2022 BASIC METAB OLIC PANEL potassium 4.3 mmol/ L 3.5-5. 1 Not Available [address], [address], 10/18/2022 11:09:20 10/18/19 23 10/18/2022 BASIC METAB OLIC PANEL chloride 104 mmol/ L 96-107 Not Available [address], [address], 10/18/2022 11:09:20 10/18/19 23 10/18/2022 BASIC METAB OLIC PANEL anion gap 13.1 5.0-15 .0 Not Available [address], [address], 10/18/2022 11:09:20 10/18/19 23 10/18/2022 BASIC METAB OLIC PANEL CO2 25 mmol/ L 21-32 Not Available [address], [address], 10/18/2022 11:09:20 10/18/19 23 10/18/2022 BASIC METAB OLIC PANEL calcium 8.8 mg/dL 8.5-10 .3 Not Available [address], [address], 10/18/2022 11:09:20 10/18/19 23 10/18/2022 LIPID PANEL cholesterol 241 mg/dL <200 mg/dl Maxi able 200-2 39 mg/dl Borde rline High >240 mg/dl High Not Available [address], [address], 10/18/2022 11:09:21 10/18/19 23 10/18/2022 LIPID PANEL triglyceride s 146 mg/dL <150 mg/dL Sagrario l 150-1 99 mg/dL Borde rline High 200-4 99 mg/dL High >500 mg/dL Very High Not Available [address], [address], 10/18/2022 11:09:21 10/18/19 23 10/18/2022 LIPID PANEL direct HDL 43 mg/dL <40 mg/dl - Major Risk for CHD >60 mg/dl - Negat monty Risk for CHD Not Available [address], [address], 10/18/2022 11:09:21 10/18/19 23 10/18/2022 DIREC T LDL direct LDL 170 mg/dL RISK CATEG ORY LDL GOAL _ CHD or CHD Risk Equiv alent s <100 mg/dl (10-y ear risk >20%) 2+ Risk Facto rs <130 mg/dl (10-y ear risk <= 20%) 0-1 Risk Facto r??? <160 mg/dl ??? Almos t all peopl e with 0-1 risk facto r have a 10 year risk <10%, thus 10 year risk asses ment in peopl e with 0-1 risk facto r is not neces chaz. Not Available [address], [address], 10/18/2022 11:09:22 10/18/19 23 10/18/2022 TSH TSH 3.62 uIU/m L 0.50-6 .00 The Ameri can Colle ge of Endoc rinol ogy and Ameri can Thyro id Assoc iatio n recom mend goal TSH value s betwe en 0.4-4 .0 mIU/m L. Not Available [address], [address], 10/18/2022 11:43:47 05/14/20 21 05/14/2021 MAMMO , scree osmany, tomos ynthe sis, bilat eral, w/ CAD COMPAR NATHAN: 012 throug h 10/26/19 19 Bilate ral 3-D tomosy nthesi s with 2-D recons tructi ons in the CC and MLO projec tion. Comput er-aid ed detect ion system was utiliz ed. No new mass, asymme try, samantha ectura l distor tion or suspic ious calcif icatio ns have become appare nt on either side. IMPRES NICOLE: No findin gs suspic ious for malign christin are identi fied. In the absenc e of a worris ome palpab le abnorm ality, annual screen ing mammog jacque is recomm ended. BI-RAD S CATEGO RY: 1 - Negati ve. DENSIT Y: There are scatte red fibrog landul ar densit ies. Electr onical ly Signed by: Bo quintana on 021 9:00 AM Interp reted by: Bo quintana MD Signed by: Bo quintana MD 1 CC Recipi ents: Gunjan Kapoor , [employer]NEY[employer] - Fax (autho rizing provid er) Final result Screen ing mammog hailey Last 2018 NACHO M SLARICHA KAPOOR [facility] [address] [place], [address], 05/14/2021 09:16:37 05/14/20 21 05/14/2021 MAMMO , scree osmany No observ ation [facility] ed[facility] [address] [place], [address], 05/14/2021 10:17:13 08/18/20 22 08/17/2022 MAMMO , scree osmany, tomos ynthe sis, bilat eral, w/ CAD COMPAR NATHAN: 021 throug h 006 Bilate ral 3-D tomosy nthesi s with 2-D recons tructi ons in the CC and MLO projec tion. Comput er-aid ed detect ion system was utiliz ed. No new mass, asymme try, samantha ectura l distor tion or suspic ious calcif icatio ns have become appare nt on either side. IMPRES NICOLE: No findin gs suspic ious for malign christin are identi fied. In the absenc e of a worris ome palpab le abnorm ality, annual screen ing mammog jacque is recomm ended. BI-RAD S CATEGO RY: 1 - Negati ve. DENSIT Y: There are scatte red fibrog landul ar densit ies. Electr onical ly Signed by: Bo quintana on 2021 11:36 AM Interp reted by: Bo quintana MD Signed by: Bo quintana MD Final result Screen ing mammog hailey Last mm 2020 BIRAD 1 NACHO KAPOOR hwzokarli [facility] [address] [place], [address], 08/18/2022 13:03:24 08/18/20 22 08/17/2022 MAMMO , scree osmany No observ ation record ed. [email or web address] [facility] [address] [facility], [place], [address], 08/18/2022 13:03:24 10/17/19 23 10/17/2022 elect rocar diogr am No observ ation record ed. [email or web address] lo [facility] [address] [facility], [place], [address], 10/18/2022 18:37:07 10/17/19 23 elect rocar diogr am No observ ation record ed. klopezdelcastil lo Not Available 10/18/2022 18:37:08 11/10/19 23 kali r monit or No observ ation record ed. [email or web address] lo Mai Oden MD [address] [place], [address], 11/22/2022 13:34:43 12/10/19 23 12/09/2022 adult ECHO TTE Table format ting from the origin al result was not includ ed. Images from the origin al result were not includ ed. Result Report Jovanny heaton Name: Ann Marie Gonzales Class: Outpat ient Sonogr apher: Radha Lira Perfor danis Physic mohamud: None Select ed Suppor ting Staff: None Select ed Orderi ng Prov: Keshia Steele lo Primar y Care Physic mohamud: Nacho Montenegro Diagno sis: Palpit ations [R00.2 (ICD-1 0-CM)] Reason For Exam: Palpit ations Proced ure(s) Perfor med: Compre hensiv e Echo (TTE) Date Perfor med: 023 Access ion #: [id number] Result Status : Final Adult Echo TTE: Jovanny heaton Commun icatio n Releas ed Not seen Echo Findin gs Genera l Findin gs The image qualit y was good (2). Techni que(s) used in the evalua tion: Color flow Dopple r and Spectr al Dopple r. The predom inant rhythm during the study was sinus. Left Ventri yovani The left ventri cular cavity size and wall thickn ess are normal . Left ventri cular systol ic functi on is normal . There are no segmen bandar left ventri cular wall motion abnorm alitie s noted. The estima melvin ejecti on fracti on is 62% (Sagrario l 50-75% ). The left ventri cular ejecti on fracti on was measur ed by the single dimens ion method . Left ventri cular diasto lic functi on appear s within normal limits for age. There is no eviden ce of left ventri cular thromb us. Right Ventri yovani The right ventri cular size is normal . The right ventri cular systol ic functi on is normal . Interv entric ular Septum There is no eviden ce of a ventri cular septal defect . Left Atrium The left atrium is normal in size. The left atrial anteri or-pos terior dimens ion measur es 41 mm (sagrario l 15-40 mm). The pulmon luciano venous flow profil es are normal . Right Atrium The right atrium is normal in size. The IVC is normal in size (2.1cm or less). The IVC demons trates normal collap se with inspir ation which is consis tent with normal RA pressu re. Intera trial Septum No intera trial shunt in visual ized by color dopple r. Aortic Valve The aortic valve is tricus pid. There is no eviden ce of valvul ar aortic stenos is. There is eviden ce of trace aortic regurg itatio n by color and spectr al Dopple r. The visual ized portio ns of the thorac ic aorta appear normal . Mitral Valve E/A ratio .6 E/E' AVG 7.9 Lat E' Shai 8.27 cm/s Med E' Shai 6.42 cm/s There is no eviden ce of mitral stenos is. There is classi c prolap se of the mitral valve. There is modera te mitral regurg itatio n detect ed by spectr al and color Dopple r. Tricus pid Valve TAPSE 2.84 cm S Wave 13.8 cm/s There is no eviden ce of tricus pid stenos is. There is eviden ce of mild tricus pid regurg itatio n by color and spectr al Dopple r. There is an insuff icient tricus pid regurg itatio n Dopple r profil e to calcul ate a right ventri cular systol ic pressu re. Pulmon ic Valve Pulmon luciano valve was not well visual ized. There is no eviden ce of pulmon ic stenos is. There is eviden ce of trace pulmon luciano regurg itatio n by color and spectr al Dopple r. Perica rdium There is no eviden ce of perica rdial effusi on. Compar nathan Findin gs Compar ed to a prior TTE from 08/23/19 18 Routin e Measur ements Height : 160 cm Systol ic BP: 122 mmHg Weight : 69 kg Diasto lic BP: 86 mmHg Body Surfac e Area: 1.72 m2 LV Measur ements LVIDed 38 mm (Range : 37 - 52) LVIDes 25 mm (Range : 22 - 35) IVS 9 mm PWT 11 mm LV EF 62 Percen t (Range : 50 - 75) LVOT gradie nt peak rest 2 mmHg Other Measur ements LA A-P 41 mm (Range : 15 - 40) Tricus pid annula r plane systol ic excurs ion (Sagrario l: >=17) 2.8 mm AV Measur ements Ao Sinus 30 mm Asc Ao 31 mm AV peak gradie nt 6 mmHg AV mean gradie nt 3 mmHg LVOT diamet er 20.0 mm LVOT veloci ty 0.7 m/s MV Measur ements E wave veloci ty 57.8 cm/s A wave veloci ty 93.4 cm/s Interp retati on Summar y Normal LV size and wall thickn ess. LV systol ic functi on is normal with EF 60 to 65%. There are no clear wall motion abnorm alitie s. Normal diasto lic functi on. Normal RV size and functi on. The mitral valve leafle ts are modera tely thicke yovanny. There is mild prolap se of the anteri or mitral valve leafle t. There is mild to modera te centra lly direct ed mitral regurg itatio n. Compar nathan is made to the prior study report from 2017. There is no signif icant change . Signed Electr onical ly signed by Baltazar Schneider MD on 3 at 1449 EDT Aydin oropeza Physic mohamud Role Baltazar Schneider MD Attend ing Cardio logist NACHO HINSON [facility] [address] [facility], [place], [address], 12/14/2022 10:19:18 12/10/19 23 12/09/2022 left ventr icula r eject ion fract ion No observ ation record ed. [email or web address] [facility] [address] [facility], [place], [address], 12/09/2022 21:33:06 12/16/19 23 11/24/2022 bone densi ty Dual-E nergy X-ray Absorp tiomet ry (DXA) scan perfor med on 11/24/22 . Impres nicole: Based on BMD, diagno sis is consis tent with low bone mass. Treatm ent Recomm endati ons: ?Opti areli vitami n D, calciu m, and weight -beari ng and muscle -stren gtheni ng exerci se. This patien t has low bone mass with fractu re risk above the thresh old for antire sorpti ve treatm ent. Treatm ent option s should be consid ered. Follow -up DXA: Consid er repeat ing this study in one to two years or as [facility]. Indica tion(s ): Caucas mohamud, postme nopaus al Clinic al Histor y: height loss, fragil ity fractu res Techni leticai Qualit y: The techni leticia qualit y of the study was good and no region s of intere st were remove d. Result s: Lumbar Spine The BMD measur ed in the L1-L4 region is 1.080 g/cm2. T-scor e = -0.8. Femora l Neck The BMD measur ed at the right femora l neck is 0.742 g/cm2. T-scor e = -2.1. Total Hip The BMD measur ed at the total right proxim al femur is 0.803 g/cm2. T-scor e = -1.6. Interv al Change : No priors availa ble for compar nathan. Fractu re Risk: The estima melvin 10-yea r risk for a major osteop orotic fractu re is 19 % and for a hip fractu re 3.2 %. This fractu re risk estima te was calcul ated using FRAX versio n 4.0 and Caucas mohamud race, postme nopaus e, and fragil ity fractu res as additi onal clinic al risk factor s for fractu re. This scan was perfor med using the [employer] Prodig y Primo 10 densit ometer at [facility] , [place] [address] [place]. Read by: Cheryl Lucas on, MS, [employer]-BC , CCD Readin g Physic mohamud: Lenin olmedo [facility] (Imaging) [address] , [place], [address], 12/19/2022 11:30:47 08/29/19 24 08/23/2023 MAMMO , scree osmany, tomos ynthe sis, bilat eral, w/ CAD BI MAMMOG HAILEY SCREEN ING WITH TOMOSY NTHESI S WITH CAD (BILAT ERAL) Additi onal patien t inform ation: Screen ing. COMPAR NATHAN: Compar nathan is made with releva nt prior imagin g. Breast compos ition: There are scatte red fibrog landul ar densit ies. FINDIN GS: No abnorm al masses , suspic ious calcif icatio ns, or other signif icant findin gs are identi fied mammog raphic ally in either breast . IMPRES NICOLE: No mammog raphic eviden ce of malign christin in either breast . Annual screen ing mammog jacque is recomm ended. BI-RAD S CATEGO RY: 1 - Negati ve. The patien t will be notifi ed of the result s and recomm endati ons. Electr onical ly Signed by: Dr. Juani López on 08/29/19 24 3:30 PM Interp reted by: Juani López MD Signed by: Juani López MD 08/29/23 Final result Routin e Screen ing- no concer ns Last mm 22 br 1 NACHO MONTENEGRO [id number] [facility] [address] [place], [address], 08/29/2023 16:05:23 Result Notes None recorded. Problems Name Problem SNOMED Code Status Onset Date Resolution Date Notes Provider Name and Address Organization Details Recorded Time Calculus of kidney and ureter 379675150 Completed 10/08/2012 Jaimee Rutherford PA-C [address] [place], [place] [address], [address], [facility] [place] 10:43:07 Mixed hyperlip idemia 041598807 Active 2008 Gunjan Kapoor NP [address] [place], [place] [address], [address], [facility] [place] 2 21:57:14 Major depressi on, melancho lic type 820705409 Active Gunjan Kapoor NP [address] [place], [place] [address], [address], [facility] [place] 2 21:57:14 Adjustme nt disorder with mixed emotiona l features 08623995 Completed 10/08/2012 Jaimee Rutherford PA-C [address] [place], [place] [address], [address], [facility] [place] 5 10:43:07 Right upper quadrant pain 772840773 Completed 10/08/2012 Jaimee Rutherford PA-C [address] [place], [place] [address], [address], [facility] [place] 5 10:43:07 Palpitat ions 02178976 Completed 200810/08/2012 Jaimee Rutherford PA-C [address] [place], [place] [address], [address], [facility] [place] 5 10:43:07 Shoulder pain 63499926 Completed 07/10/2013 Jaimee Rutherford PA-C [address] [place], [place] [address], [address], [facility] [place] 5 10:43:07 Generali zed anxiety disorder 71204688 Active Gunjan Kapoor NP [address] [place] [address], [place], [place], [address], [facility] [place] 2 21:57:14 Molluscu m contagio sum infectio n 36886618 Completed 10/08/2012 Jaimee Rutherford PA-C [address] [place] [address], [place], [place], [address], [facility] [place] 5 10:43:07 Dysuria 48252278 Completed 10/08/2012 Jaimee Rutherford PA-C [address] [place] [address], [place], [place], [address], [facility] [place] 5 10:43:07 Low back pain 948695171 Completed 10/08/2012 Jaimee Rutherford PA-C [address] [place] [address], [place], [address], [facility] [place] 5 10:43:07 Anxiety state 604451160 Completed 10/08/2012 Jaimee Rutherford PA-C [address] [place] [address], [place], [place], [address], [facility] [place] 5 10:43:07 Insomnia 046437577 Completed 10/08/2012 Jaimee Rutherford PA-C [address] [place] [address], [place], [place], [address], [facility] [place] 5 10:43:07 Urolith Completed 200810/08/2012 Jaimee Rutherford PA-C [address] [place], [place] [address], [address], [facility] [place] 5 10:43:07 Vaginiti s and vulvovag initis Completed 200810/08/2012 Jaimee Rutherford PA-C [address] [place] [address], [place], [address], [facility] [place] 5 10:43:07 Degenera tion of lumbar interver tebral disc 39693626 Active Gunjan Kapoor NP [address] [place] [address] [place], [place], [address], [facility] [place] 2 21:57:14 History of palpitat ions 388060756 Active 2015 ECHO: EF >60%, mild mitral regurg, borderlin e mitral valve prolapse. 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 Gunjan Kapoor NP [address] [place] [address] [place], [place], [address], [facility] [place] 2 21:57:13 Steatosi s of liver 554165708 Active 2019 Gunjan Kapoor NP [address] [place] [address] [place], [place], [address], [facility] [place] 2 21:57:13 Liver cyst 96410371 Active 2019 Jaimee Rutherford PA-C [address] [place] [address] [place], [place], [address], [facility] [place] 0 15:57:44 Prediabe ty 654122074 Active 202005/12/21 A1c 6.2 Gunjan Kapoor NP [address] [place] [address] [place], [place], [address], [facility] [place] 2 21:57:13 Lacerati on - injury 023406527 Active 2022 [facility] D/C Jerilyn Ringer latoya, [facility] 3 08:55:26 Wound of skin 140158417 Active 2022 Wound repair [facility] D/C Jerilyn Ringer null, [facility] 3 08:56:31 Problem Notes None recorded. Procedures Surgical History Date Name Laterality Status Provider Name and Address Organization Details Recorded Time 3 Medicare Wellness Visit cancelled Delphine June MA [facility] 05/23/2023 10:17:42 3 Advanced Care Planning cancelled Delphine June [facility] 05/23/2023 10:17:43 2 Barnes Sleepiness Scale completed Gunjan Kapoor NP [address] [place] [address], [address], [facility] 04/13/2022 08:12:05 0 prevention-card iovascular risk reduction counseling completed Paula Hopper [facility] 05/07/2020 13:44:54 0 prevention-dominik al alcohol misuse screening completed Paula Hopper [facility] 05/07/2020 13:44:54 0 prevention-card iovascular risk reduction counseling cancelled Paula Hopper [facility] 05/07/2020 10:31:54 0 prevention-dominik al alcohol misuse screening cancelled Paula Hopper [facility] 05/07/2020 10:31:54 8 POC Flu Testing completed Risa Burrell RN [facility] 09/25/2017 13:32:50 8 POC Strep Testing completed Risa Burrell RN [facility] 09/25/2017 13:46:31 3 Shave Biopsy completed Spencer Shook MD [address] [place] [address], [phone], [facility] 07/24/2013 13:10:05 3 Treatment and Advice completed Lupis Lopez Mph, LPT [address] [place] [address], [address], [facility] 03/07/2013 13:00:34 1 Skin Tag Removal (up to 15) completed Lala Chavez NP [address] [place] [address], [address], [facility] 02/09/2011 05:34:52 Tubal Ligation completed Spencer Shook MD [address] [place] [address], [address], [facility] 05/12/2014 09:05:38 Colonoscopy completed Mai Oden MD [address] [place] [address], [address], [facility] 03/23/2018 14:33:56 Imaging Results Imaging Date Name Status LastModified by Organization Details LastModified Time 1 MAMMO, screening, tomosynthesis, bilateral, w/ CAD completed [facility] [address] [place], [address], 05/14/2021 09:16:37 1 MAMMO, screening completed [facility] [address] [place], [address], 05/14/2021 10:17:13 2 MAMMO, screening, tomosynthesis, bilateral, w/ CAD completed [facility] [address] [place], [address], 08/18/2022 13:03:24 2 MAMMO, screening completed [facility] [address] [place], [address], 08/18/2022 13:03:24 3 electrocardiogram completed lucretia [facility] [address] [place] [address], [address], 10/18/2022 18:37:07 3 [facility]ogram [facility] Information not available 10/18/2022 18:37:08 3 holter monitor [facility] Oden [facility] [address] [place], [address], 11/22/2022 13:34:43 3 adult ECHO TTE completed [facility] [address] [place], [address], 12/14/2022 10:19:18 3 left ventricular ejection fraction completed [facility] [address], [place], [address], 12/09/2022 21:33:06 3 bone density completed [facility] [address], [place], [address], 12/19/2022 11:30:47 4 MAMMO, screening, tomosynthesis, bilateral, w/ CAD completed [id number] [facility] [address] [place], [address], 08/29/2023 16:05:23 Procedure Notes None recorded. Medical Equipment None Reported. Allergies Allergen ID Allergen Name Allergen Category Reaction Reaction Severity Criticality Documentation Date Start Date Code Code System Note Provider Name and Address Organization Details Recorded Time [id number] naproxen medicatio n Not available Not available Not available 09/07/2012 7258 RxNorm Juan Jaimes [address] [place], [address], [facility] [place] 3 16:36:32 9607 codeine medicatio n Not available Not available Not available 12/12/2008 2670 RxNorm Not Available [facility] 1 06:05:20 9608 ibuprofen medicatio n Not available Not available Not available 12/12/2008 5640 RxNorm palpi tatio ns heada teena Juan Jaimes [address] [place], [address], [facility] 3 15:05:41 Medications Name Sig Start Date Stop Date Status Note LastModified by Organization Details LastModified Time cyclobenz aprine 10 mg tablet take 1 tablet by mouth every 8 hours if needed 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 TAKING 01/05 completed Not taking 0 SD Not Available Not Available Not Available amoxicill in 500 mg capsule 04/02 completed Pt not taking 04/02/19 NT Not Available Not Available Not Available doxycycli ne hyclate 100 mg capsule TAKE 1 CAPSULE BY MOUTH TWICE DAILY FOR 5 DAYS 10/17 completed Not Available Not Available Not Available trazodone 50 mg tablet 1-2tabs po qhs 2012 active Not Available Not Available Not Avai lable azithromy mallory 250 mg tablet TAKE 2 TABLETS (500 MG) BY ORAL ROUTE ONCE DAILY FOR 1 DAY THEN 1 TABLET (250 MG) BY ORAL ROUTE ONCE DAILY FOR 4 DAYS 04/13 completed Not taking 04/13/22 JENNIE Not Available Not Available Not Available hydrocodo ne 5 mg-acetam inophen 325 mg tablet 04/02 completed Pt not taking 04/02/19 NT, Not Available Not Available Not Available Provera 2.5 mg tablet Take 1 tab po daily and increase to 2 tabs daily as instruct ed 2009 active Not Available Not Available Not Avai lable Prilosec 20 mg capsule,d elayed release Take 1 capsule every day by oral route. 01/20 completed Not Available Not Available Not Available atenolol 25 mg tablet take one tab by mouth daily 10/16 completed 1/2 tab daily 05/16/17 Not Available Not Available Not Available simvastat in 40 mg tablet 1QD - TAKE ONE TABLET BY MOUTH EVERY DAY 01/02 completed pha schedule d for 02/23/10 Not Available Not Available Not Available levothyro xine 25 mcg tablet Take 1 tablet every day by oral route in the morning for 30 days. 05/30 completed Not Available Not Available Not Available alprazola m 0.5 mg tablet Take 1 tablet by oral route as needed for flight anxiety. Repeat in 30 minutes if needed. 2010 active for travel Not Available Not Available Not Available amoxicill in 875 mg tablet 04/02 completed Pt not taking 04/02/19 NT, Not Available Not Available Not Available citalopra m 20 mg tablet TAKE 1 AND 1/2 TABLETS BY MOUTH EVERY DAY 05/23 completed Not Available Not Available Not Available lorazepam 0.5 mg tablet TAKE ONE-HALF TO 1 TABLET BY MOUTH TWICE DAILY NEEDED FOR ANXIETY DUE TO AIR TRAVEL 05/23 completed Not Available Not Available Not Available benzonata te 100 mg capsule TAKE 1 CAPSULE BY MOUTH THREE TIMES A DAY NEEDED FOR 7 DAYS 12/22 completed Not Available Not Available Not Available simvastat in 20 mg tablet TAKE 1 TABLET BY MOUTH EVERY DAY 05/23 completed Not Available Not Available Not Available ranitidin e 150 mg tablet Take 1 tablet twice a day by oral route for 30 days. 02/25 completed Not Available Not Available Not Available diclofena c sodium 75 mg tablet,de layed release Take 1 tablet twice a day by oral route with meals for 15 days. 09/22 completed Not Available Not Available Not Available hydroxyzi ne HCl 25 mg tablet Take 1 tablet every day by oral route at bedtime for 30 days. 03/17 completed Not Available Not Available Not Available zolpidem 5 mg tablet Take 1 tablet as needed by oral route at bedtime for 14 days. 11/21 completed Not Available Not Available Not Available Percocet 5 mg-325 mg tablet Take 1 tablet every 6 hours by oral route. 02/08 completed Not Available Not Available Not Available atenolol 50 mg tablet TAKE 1 TABLET BY MOUTH EVERY DAY active Not Available Not Available No t Available amoxicill in 875 mg-potass ium clavulana te 125 mg tablet TK 1 T PO Q 12 H FOR 3 DAYS 05/07 completed Pt not taking 05/07/20 NMT Not Available Not Available Not Available Bactrim DS 800 mg-160 mg tablet Take 1 tablet every 12 hours by oral route. 2009 active Not Available Not Available Not Avai lable melatonin 1 mg tablet Take 1 tablet as needed by oral route at bedtime. 02/08 completed Not Available Not Available Not Available Nasonex 03/23 completed Not Available Not Available Not Available simvastat in active 1po qd Not Available Not Available Not Available Zyrtec 03/23 completed Not Available Not Available Not Available Afluria Quad (PF) 60 mcg (15 mcg x 4)/0.5 mL IM syringe inject 0.5 millilit er immediat brittney 04/02 completed Not Available Not Available Not Available Plenvu 140 gram-9 gram-5.2 gram powder packs USE DIRECTED 05/07 completed not taking 0 yelitza Not Available Not Available Not Available Fluarix Quad (PF) 60 mcg (15 mcg x 4)/0.5 mL IM syringe inject 0.5 millilit ers intramus cularly 01/05 completed Not Available Not Available Not Available Fluarix Quad (PF) 60 mcg (15 mcg x 4)/0.5 mL IM syringe ADM 0.5ML IM UTD 12/16 completed Not Available Not Available Not Available BinaxNOW COVID-19 Ag Self Test kit TEST DIRECTED TODAY 09/06 completed Not Available Not Available Not Available Vitals Date Recorded Body height Body mass index (BMI) Body weight Body temperature Heart rate Systolic blood pressure Diastolic blood pressure Provider Name and Address Organization Details Last Updated DateTime 1 160.02 cm 27.3 kg/m2 76911.9 2 g 98.2 [degF] 64 /min 110 mm[Hg] 72 mm[Hg] Lizbeth Loveck [facility] 1 14:33:09 Date Recorded Body height Heart rate Body temperature Systolic blood pressure Diastolic blood pressure Provider Name and Address Organization Details Last Updated DateTime 10/01/2021 160.02 cm 62 /min 97.6 [degF] 126 mm[Hg] 82 mm[Hg] Zahraa holcomb, [facility] 2 17:15:15 Date Recorded Body height Body mass index (BMI) Body weight Heart rate Systolic blood pressure Diastolic blood pressure Provider Name and Address Organization Details Last Updated DateTime 2 160.02 cm 26.9 kg/m2 71105.0 4 g 66 /min 104 mm[Hg] 66 mm[Hg] Carmel Haines MA [facility] 2 07:50:09 Date Recorded Body height Body mass index (BMI) Body weight Heart rate Systolic blood pressure Diastolic blood pressure Provider Name and Address Organization Details Last Updated DateTime 2 160.02 cm 27.1 kg/m2 49297.6 3 g 62 /min 128 mm[Hg] 73 mm[Hg] Carmel Haines MA [facility] 2 08:36:17 Date Recorded Body height Body mass index (BMI) Body weight Heart rate Systolic blood pressure Diastolic blood pressure Provider Name and Address Organization Details Last Updated DateTime 3 160.02 cm 28.2 kg/m2 71406.2 9 g 76 /min 122 mm[Hg] 60 mm[Hg] Donna Knightraziaesau ELENI [facility] 3 15:56:22 Social History Question Answer Notes LastModified by Organizat ion Details LastModified Time Tobacco Smoking Status Former [facility]oker quit 1985 Not Available [facility] 01/13/2011 02:07:48 Do You Have An Advance Directive? No [id number] Information not available 07/07/2011 What Is Your Level Of Alcohol Consumption? Moderate 0-2 Drink/night. 5 Drinks A Week yperry Information not available 05/12/2014 Do You Wear A Helmet When Biking? No Will Get One Information not available 05/11/2021 What Is Your Level Of Caffeine Consumption? None [id number] Information not available 07/07/2011 How Much Tobacco Do You Chew? None Information not available 02/14/2017 What Type Of Diet Are You Following? REGULAR [id number] Information not available 07/07/2011 Do You Or Have You Ever Used E-cigarettes Or Vape? Never Used Electronic Cigarettes Information not available 05/07/2020 Education 12 Information not available 02/14/2017 When Did You Quit Smoking? 16+yearssinc elastcigaret te Information not available 05/11/2021 Are There Any Guns Present In Your Home? No Information not available 05/11/2021 Do You Use Insect Repellent Routinely? No Information not available 05/11/2021 Live Alone Or With Others? Alone Information not available 05/07/2020 Patient Has Health Care Proxy Signed And In Chart Yes Meghana Bryan- Daughter, Form Given 03/23/2018, Son Brain matias Information not available 08/01/2011 Marital Status Compliacted Relationship W/ maria rshakirMandy Information not available 01/21/2010 Mosquito Repellent Used Routinely No [id number] Information not available 07/07/2011 What Was The Date Of Your Most Recent Tobacco Screening? 10/17/2022 Information not available 10/17/2022 How Many Children Do You Have? 3 Adult, Youngest Born 1995. 2 Carmina patel Information not available 01/21/2010 What Is Your Current Pack Years? 10packyears Less Than 10 Information not available 05/11/2021 What Is Your Relationship Status? Single Information not available 05/11/2021 Do You Use Your Seat Belt Or Car Seat Routinely? Yes Information not available 05/11/2021 Seat Belts Used Routinely Yes [id number] Information not available 07/07/2011 Are You Sexually Active? No lucretia Information not available 03/23/2018 Smoke Alarm In Home Yes Information not available 07/07/2011 Do You Have Smoke And Carbon Monoxide Detectors In Your Home? Yes Information not available 05/11/2021 At What Age Did You Start Smoking Tobacco? 19 Information not available 05/11/2021 Are You Passively Exposed To Smoke? No Information not available 05/11/2021 Do You Or Have You Ever Used Smokeless Tobacco? Never Used Smokeless Tobacco Information not available 05/07/2020 How Much Tobacco Do You Smoke? 1 PPD Information not available 05/11/2021 General Stress Level Medium [id number] Information not available 07/07/2011 Do You Use Any Illicit Or Recreational Drugs? No Information not available 05/11/2021 Do You Use Sunscreen Routinely? No Face Information not available 05/11/2021 How Many Years Have You Smoked Tobacco? 6 Information not available 05/11/2021 Do You Or Have You Ever Used Any Other Forms Of Tobacco Or Nicotine? No Information not available 10/17/2022 Sex: Unknown Functional Status None recorded. Mental Status None recorded. Family History Relationship Description Onset Age of this Age Resolved Age Notes LastModified by Organization Details LastModified Time Mother Disorder of thyroid gland yperry Not available 2013 09:05:39 Mother Malignant tumor of colon 68 68 yperry Not available 2013 09:05:39 Mother Hyperlipidem ia [email or web address] Not available 2015 16:08:20 Sister Disorder of thyroid gland previo usly record ed as Thyroi d Diseas e yperry Not available 05/12/2014 09:05:39 Father Coronary artery embolism 47 yperry Not available 2013 09:05:39 Brother Type 2 diabetes mellitus hwzorek Not available 2018 16:16:25 Brother Depressive disorder [email or web address] Not available 2018 16:16:37 Notes:no breast CA, no HAZARDOUS SUBSTANCES SCIENTIST c ancers Medical History Condition Response Anxiety Y Depression Y Hyperlipidemia Y Chronic Back Pain Y Heart Disease N Gynecological History Statement/Question Response History of Abnormal Pap N Age at Menarche 13 Date of LMP Obstetrics History GPAL:G 0 P 0 0 0 0 Immunizations Vaccine Type Date Status Note Provider Nam e and Address Organization Details Recorded Time Influenza, split virus, trivalent, preservative 1 completed Not Available [facility] 09/07/2019 02:18:30 Influenza, split virus, trivalent, preservative 2 completed Not Available [facility] 09/07/2019 02:18:36 Influenza, split virus, trivalent, PF 3 completed Not Available [facility] 09/07/2019 02:26:05 Tdap 2 completed ARIEL Da Silva, [facility] 06/21/2012 09:35:59 zoster live 7 completed Not Available [facility] 09/07/2019 02:29:51 Influenza, split virus, trivalent, PF 4 completed Not Available [facility] 09/21/2019 02:10:39 Tdap 0 completed Not Available [facility] 09/07/2019 02:34:12 influenza, unspecified formulation 8 completed Not Available [facility] 09/21/2019 02:10:44 Td (adult), 2 Lf tetanus toxoid, preservative free, adsorbed 0 completed Jaimee Rutherford PA-C [address] [place] [address], [phone], [facility] [place] 02/12/2020 15:49:51 Influenza, split virus, quadrivalent, preservative 9 completed ARIEL Madison, [facility] 05/13/2019 09:39:02 Influenza, split virus, quadrivalent, PF 1 completed Gunjan Kapoor NP [address] [place] [address], [phone], [facility] [place] 05/11/2021 16:05:58 Influenza, split virus, quadrivalent, preservative 0 completed MARLEE Blanco null, [facility] 06/24/2020 15:39:23 COVID-19, mRNA, LNP-S, PF, 30 mcg/0.3 mL dose 1 completed Paula Hopper CMA null, [facility] 12/17/2020 16:34:43 COVID-19, mRNA, LNP-S, PF, 30 mcg/0.3 mL dose 1 completed Paula Hopper CMA null, [facility] 12/17/2020 16:35:16 Influenza, split virus, trivalent, preservative 0 completed Not Available [facility] 09/07/2019 02:17:50 COVID-19, mRNA, LNP-S, PF, 30 mcg/0.3 mL dose 1 completed Nacho Montenegro MD [address] [place] [address], [phone], [facility] [place] 10/01/2021 17:27:41 [facility]dap 3 [facility] 08:53:02 Past Encounters Encounter ID Performer Location Encounter Start Date Encounter Closed Date Diagnosis/Indication Diagnosis SNOMED-CT Code Diagnosis ICD10 Code Diagnosis Note [id number] [facility], OFFICE [address] [place] [address] 12/12/2008 15:54:59 12/17/2008 08:26:56 [id number] [facility], OFFICE [address] [place] [address] 05/27/2009 11:23:15 05/29/2009 11:34:52 [id number] [facility] - [facility] [address] [place] [address] 12/13/2008 08:44:46 12/13/2008 08:44:54 [id number] LAB - [facility] [place] [address] 02/27/2009 08:17:24 02/27/2009 08:17:31 [id number] LAB - [facility] [place] [address] 05/27/2009 00:00:00 06/18/2009 02:00:52 [id number] LAB - [facility] [place] [address] 05/27/2009 12:43:22 05/27/2009 12:43:40 [id number] , [facility], OFFICE [address] [facility] [place] [address] 01/20/2010 15:55:44 01/22/2010 12:55:28 [id number] , [facility], OFFICE [address] [place] [address] 02/23/2010 09:04:33 02/26/2010 09:40:20 [id number] [facility], OFFICE [address] [place] [address] 03/12/2010 17:29:25 03/15/2010 14:42:55 [id number] [facility], OFFICE [address] [place] [address] 07/06/2010 16:33:55 07/08/2010 15:30:34 [id number] Radiology , [address] [address] 07/23/2010 15:56:46 07/26/2010 14:54:52 [id number] Radiology , [facility] [address] [place] [address] 07/23/2010 16:18:39 07/26/2010 14:54:45 [id number] [facility], OFFICE [address] [place] [address] 02/08/2011 12:07:46 02/09/2011 13:53:46 [id number] , [facility], OFFICE [address] [place] [address] 05/06/2011 13:38:45 05/10/2011 10:01:05 [id number] Spencer Shook MD , [facility], OFFICE [address] [place] [address] 08/01/2011 10:01:50 08/01/2011 14:43:45 [id number] Spencer Shook MD , [facility], OFFICE [address] [place] [address] 11/08/2011 11:26:17 11/08/2011 11:59:00 [id number] , [facility], OFFICE [address] [place] [address] 03/02/2012 08:17:45 03/02/2012 09:06:32 [id number] Spencer Shook MD , [facility], OFFICE [address] [place] [address] 06/21/2012 09:19:27 06/21/2012 09:56:02 [id number] Lupis Lopez Mph, LPT , [facility], OFFICE [address] [place] [address] 09/07/2012 14:41:20 09/07/2012 15:07:02 [id number] Lupis Lopez Mph, T Physical Therapy, [address] [address] 03/07/2013 09:28:54 03/07/2013 13:25:17 [id number] Lupis Lopez Mph, T Physical Therapy, [address] [address] 03/15/2013 08:01:49 03/15/2013 14:07:14 [id number] Spencer Shook MD , [facility], OFFICE [address] [place] [address] 05/24/2013 07:37:56 05/24/2013 08:45:34 Menopausal symptom 20327629 disucssed that her hot flashes may not be related to menopause since she has not had menses x5y and so there are no flucutaion s in her estrogen level. HEr thyroid labs are WNL. She would like to try to treat the sx as though they are due to menopause. DIscussed risks/bene fits of HRT including breast CA, [place] and pt would like to try black cohosh supplement first and f/u if sx cont. Influenza vaccine needed [id number] 106 Neoplasm o f uncertain behavior of skin 94296022 will RTC for bx [id number] Spencer Shook MD , [facility], OFFICE [address] [place] [address] 07/24/2013 07:56:47 07/24/2013 08:38:36 Backache 436616031 Neoplasm o f uncertain behavior of skin 45389907 2 bx done today, await path. discussed wound care [id number] MARLEE Blanco , [facility], OFFICE [address] [place] [address] 09/03/2013 09:09:28 09/03/2013 09:57:42 Moderate major depression 351760 >25min spent w/ pt, >50% in counseling regarding making steps to move through the grieveing process over her failed marriage, stress reduction and seeing therapist on weekly basis. Discussed risks/bene fits of inc'ing SSRI and adding benzo short term for sleep including sedation, addiction. She agrees to plan, f/u 2weeks Generalize d anxiety disorder 19472006 dsicsussed importance of stress reduction and seeing therapist on weekly basis. She agrees. Insomnia 358789889 discu sssed importance of sleep, short term benzo use until inc'd SSRI dose takes effect and she gets back into therapy [id number] Patsy Andersen , [facility], OFFICE [address] [place] [address] 09/17/2013 08:54:23 09/17/2013 10:44:41 Leukorrhea [id number] advised to call if odor, burning, itching develops Mild major depression 70235934 improving on higher dose SSRI, f/u 1mo Insomnia 206252947 impro ving on higher dose SSRI, and prn benzo. Discussed need to limit benzo use, f/u 1mo [id number] , [facility], OFFICE [address] [place] [address] 04/10/2014 14:53:12 04/10/2014 15:51:23 Neck pain 69860272 Question musculoske letal strain/sca rring in the musculatur e. Recommend xrays to assess for any fragmentat ion as at this point in time any fracture should have healed. Recommend working with PT if xrays are normal to improve ROM and flexibilit y of the neck. Plan on follow-up with YP in 6-8 weeks. Pt in agreement with this plan. [id number] Matilde Novoa , [facility], OFFICE [address] [place] [address] 05/12/2014 08:31:00 05/12/2014 09:08:47 Adult health examination 373322858 see Risk Assessment and Lifestyle Change Counseling section above Counseling [id number] Foot pain 62198762 if XR WNL, will refer to PT, if abnormal, may need to see ortho. [id number] Spencer Shook MD , [facility], OFFICE [address] [place] [address] 05/06/2015 10:12:46 05/06/2015 12:11:17 Generalized anxiety disorder 83519156 dsicsussed importance of stress reduction and seeing therapist on weekly basis. She agrees. advised to inc celexa to 30mg daily, use benzo prn for panic in the meantime. f/u 1mo. 25min spent w/ pt >50% in counseling Insomnia 089392907 advis ed to use porn benzo for now while we wait to see if higher dose celexa will help [id number] Lillian Fink , [facility], OFFICE [address] [place] [address] 08/10/2015 09:34:32 08/10/2015 10:02:05 Degeneration of lumbar intervertebral disc 34056275 M51.36 - Continue taking muscle relaxer, percocet and steroid dose pack as prescribed by ER. - Schedule appt with airways operations specialist as soon as possible. - Start gentle range of motion exercises to keep muscles loose. - Try not to sit for too long at a time. - Heat packs for 20 minutes 3-5 times per day. [id number] Gunjan Kapoor NP , [facility], OFFICE [address] [place] [address] 02/09/2016 15:37:31 02/09/2016 16:31:19 Adult health examination 160611793 Z00.00 see Risk Assessment and Lifestyle Change Counseling section above Counseling 751595563 Z71 .9 Menopausal flushing 1984 13055 N95.1 interested in hormone replacemen t. will see jade Major depr ession, melancholic type 362859219 F32.9 stable on citalopram , will continue Insomnia 054266184 G47.0 0 has been taking lorazepam 1 tab daily. will work on cutting down to 3/4 tab daily Mixed hyperlipidemia 267 428187 E78.2 recheck lipids in 3 months Gastroesop hageal reflux disease 394704960 K21.9 Reviewed appropriat e dietary measures - avoid spicy, greasy, and acidic foods. Discussed elevating head of bed, eating smaller meals, and avoiding eating before bedtime. Call or RTO if sxs persist/wo rsen. [id number] Gunjan Kapoor NP FP, [facility], OFF[address] [place] [address] 02/26/2016 07:43:29 02/26/2016 08:27:50 Palpitations 59707834 R00.2 has been well controlled with atenolol. will decrease simvastati n and monitor Mixed hyperlipidemia 267 881959 E78.2 palpitatio ns with simvastati n 40mg. will try decreased dose. no palpitatio ns with simvastati n 20mg in the past [id number] Gunjan Kapoor NP FP, [facility], OFF[address] [place] [address] 02/14/2017 15:46:52 02/14/2017 16:41:58 Adult health examination 422147882 Z00.00 see Risk Assessment and Lifestyle Change Counseling section above Fatigue 45472469 R53.83 likely related to insomnia. will get labs Active or passive immunization 359131301 Z23 Palpitations 04174939 R0 0.2 has been well controlled with atenolol. will decrease dose for low BP and lightheade dness. follow up in 3-4 weeks Generalize d anxiety disorder 76883114 F41.1 stable with citalopram and regular exercise Degenerati on of lumbar intervertebral disc 25504601 M51.36 no current pain. doing well with regular exercise Mixed hyperlipidemia 267 637415 E78.2 LDL at goal of <130 with simvastati n 20mg daily and regular exercise. tolerating well Major depr ession, melancholic type 922599136 F32.9 stable on citalopram , will continue Insomnia 392875376 G47.0 0 has tapered off lorazepam. trying melatonin. declines Rx options at this time. will continue to work on sleep hygiene and follow up [id number] Gunjan Kapoor NP , [facility], OFFICE [address] [place] [address] 03/17/2017 14:31:25 03/17/2017 15:10:40 Screening for malignant neoplasm of cervix 863917270 Z12.4 Hypothyroidism 12996596 E03.9 recheck labs 6 weeks after starting levothyrox ine History of palpitations 754058896 Z86.79 no palpitatio ns with atenolol 25mg daily Insomnia 940839503 G47.0 0 will try half tab of trazodone and work on sleep hygiene. discussed the benefit of CBT [id number] ANNIA Negron, [facility], OFFICE [address] [place] [address] 05/16/2017 15:41:49 05/16/2017 16:15:29 History of palpitations 775417137 Z86.79 no chest pain, sob, loc. occasional low BP. will decrease atenolol to 1/2 tab daily and f/u in 2 weeks. also recheck TSH Anxiety 45558703 F41.9 increased with increased stress. discussed walking, yoga, meditation , etc Hypothyroidism 08713632 E03.9 recheck labs [id number] ANNIA Negron, [facility], OFFICE [address] [place] [address] 05/30/2017 16:39:49 05/30/2017 17:00:45 Heart murmur 16402564 R01.1 last echo 2002, will get repeat Palpitations 55667598 R0 0.2 resolved off levothyrox ine [facility] hypothyroidism 42237892 E03.9 will hold off on treating. may consider very low dose levothyrox ine in the future [id number] Lillian LOMBARDO, [facility], OFFICE [address] [place] [address] 09/25/2017 13:23:02 09/26/2017 11:36:26 Acute upper respiratory infection 19556623 J06.9 Pain in throat 924065093 R07.0 Will check culture Influenza caused by Influenza B virus 43152699 J10.1 Positive fluB. Given >72 hours of sxs, tamiflu unlikely to affect course. Pt understand s this. [id number] Mukesh Veronica MD , [facility], OFFICE [address] [place] [address] 10/04/2017 16:25:29 10/06/2017 13:02:40 Pneumonia 749491741 J18.9 Post flu pneumoniaS tart antibiotic as prescribed Consider starting probioticu se tessalon perles as needed Drink plenty of fluids. Eat healthy foods, lots of fruits and vegetables . Rest when you can. For high fever (>101) for more than 3 days, worsening shortness of breath, cough productive of rust-color ed mucus (not dark yellow), or symptoms unchanged at two weeks, come back in for reassessme nt (urgent care available in [place] office Mon 9- and Monday-12 by appointmen t - call after 8AM for appt.) Dry cough can last for up to six weeks. [id number] Mukesh Veronica MD , [facility], OFFICE [address] [place] [address] 10/17/2017 17:20:33 10/23/2017 13:26:15 Chest wall tenderness 300041071 R07.89 Costal chondritis 689425 04 M94.0 Cough 81960487 R05 [id number] Mukesh Veronica MD , [facility], OFFICE [address] [place] [address] 12/22/2017 16:22:46 12/22/2017 16:59:07 Chronic rhinitis 82320772 J31.0 Continue daily Zyrtec and FlonaseRes ume sinus rinses>2 months of symptomsWi ll refer to ENT for further eval [id number] Mai Oden MD , [facility], OFFICE [address] [place] [address] 03/23/2018 13:53:35 03/27/2018 16:28:42 Adult health examination 076050126 Z00.00 see Risk Assessment and Lifestyle Change Counseling section above Depression screening 171 747679 Z13.89 depression screening tool administer ed, entered into emr, scored and discussed, time greater than 7.5 minutes Hypothyroidism 00742648 E03.9 Generalize d anxiety disorder 08967839 F41.1 Mixed hyperlipidemia 267 104521 E78.2 Active or passive immunization 422510254 Z23 Major depr ession, melancholic type 363438413 F32.9 History of palpitations 103240205 Z86.79 [id number] Lillian LOMBARDO, [facility], OFF[address] [place] [address] 04/02/2019 15:44:39 04/02/2019 16:32:45 Adult health examination 356591704 Z00.00 see Risk Assessment and Lifestyle Change Counseling section above - colonoscop y 2015 with 5 year repeat - mammo 10/2018 with 1 year repeat - pap 02/2017 with 5 year repeat Depression screening 171 639298 Z13.89 depression screening tool administer ed, entered into emr, scored and discussed, time greater than 7.5 minutes. see plan below Mixed hyperlipidemia 267 033249 E78.2 LDL at goal of <130 with simvastati n 20mg daily and regular exercise. tolerating well Pain of left wrist 27495 97534 62178 M25.532 fall 2 weeks ago, point tenderness today. will get xray Ankle pain 830244123 M25 .571 right inversion injury 2-3 months ago. continued right lateral ankle pain and edema. will get xray Unable to concentrate 60 389056 R41.840 detention trouble with focus and memory. seems to be worsening. she will schedule a follow up to discuss further and complete MOCA Major depr ession, melancholic type 241179001 F32.9 stable on citalopram , will continue History of palpitations 345031482 Z86.79 well controlled with atenolol Hypothyroidism 45740110 E03.9 stable w/o meds [id number] Lillian LOMBARDO, [facility], OFFICE [address] [place] [address] 01/06/2020 14:03:29 01/06/2020 14:53:45 Abdominal pain 27479387 R10.9 Ddx includes GERD, gastritis, cholelithi asis. Recommenda tions as below. [id number] EDWIN Griffiths, [facility], OFFICE [address] [place] [address] 02/12/2020 14:15:40 02/12/2020 16:33:12 Dog bite - wound [id number] W54.0XXA Small bite wound to lower lip yesterday. Does not look infected. Will rx antibiotic prophylaxi s as recommende d for dog bites to face. Call back precaution s reviewed. Pt is up to date with tetanus (given 8 years ago) but will come this afternoon to get tetanus shot. Active or passive immunization [id number] Z23 [id number] Gunjan Kapoor NP [facility], [facility], OFFICE [address] [place] [address] 05/07/2020 13:35:09 05/11/2020 14:39:45 Adult health examination 625967003 Z00.00 see Risk Assessment and Lifestyle Change Counseling section above- HCP: 03/23/18 - Pap: 02/2017 w/5yr repeat - [place] 01/27/20 w/5yr repeat, ordered - mammo: 10/2018, yearly repeat per pt preference . she will schedule Depression screening 171 992244 Z13.89 depression screening tool administer ed, entered into emr, scored and discussed, time greater than 7.5 minutes. see plan below Screening for alcohol abuse 757490139 Z13.39 An audit alcohol screening test was performed and scored. Patient was asked about alcohol use, advised about risks of alcohol, and personal risk was assessed, patient agreed to plan and given informatio n about available resources if needed. Discussion including screening and scoring greater than 7.5 minutes Counseling 299802553 Z71 .89 Steatosis of liver 22017 1007 K76.0 recheck liver function History of palpitations 444252534 Z86.79 well controlled with atenolol, tolerating well Hypothyroidism 08819389 E03.9 TSH wnl w/o medication at this time Mixed hyperlipidemia 267 562847 E78.2 LDL at goal of <130 with simvastati n 20mg daily and regular exercise. tolerating well Generalize d anxiety disorder 78476927 F41.1 stable with citalopram and regular exercise Major depr ession, melancholic type 240608004 F32.0 stable on citalopram , will continue Neoplasm o f uncertain behavior of skin 71066966 D48.5 spots/mole s that pt wants checked were not visualized on video. she denies itching, pain, bleeding, or significan t change. she will send pictures on the portal for me to review [id number] Gunjan Kapoor NP , [facility], OFFICE [address] [place] [phone] 06/16/2020 17:06:43 06/18/2020 13:45:36 Pain in lower limb 98205661 M79.605 left thigh ache for a few days at location of old injury. no edema or dyspnea. will get u/s to r/o DVT [id number] FELIX Watts, [facility], OFFICE [address] [place] [phone] 07/21/2020 09:25:58 07/23/2020 12:39:00 Pain of left ankle joint [id number] 1727950 M25.572 - left ankle pain x2 weeks without edema or bruising, no known injury/tra luana- low suspicion for fracture but will obtain imaging given TTP and persistent pain- discussed tx with conservati ve measures: rest, ice/heat 20min on/off, tylenol for pain, gentle stretching exercises as tolerated, air cast or radha wrap for support as needed- recommende d PT for neg xray and persistent symptoms- call for worsening or no improvemen t in symptoms [id number] ANNIA Negron, [facility], OFFICE [address] [place] [phone] 12/17/2020 16:12:41 12/17/2020 17:07:26 Screening mammography 88643675 Z12.31 Palpitations 28393552 R0 0.2 had been well controlled with atenolol. now occurring more frequently , nightly. no associated Sx. no caffeine. no exertional Sx. will get holter and follow up based on results Hypothyroidism 80833164 E03.9 recent TSH a little elevated but free T3 and T4 wnl. will continue to monitor Mixed hyperlipidemia 267 404534 E78.2 improved with lifestyle changes! great job with regular fiber, veggies, fruit, lean protein, whole grains Impaired f asting glycemia 173714065 R73.01 discussed lifestyle changes. limit simple carbs. lean protein with every meal. exercise 45 minutes most days of the week. recheck in 2-3 months [id number] Radha Sargent RN BSN , [facility], OFFICE [address] [place] [phone] 12/18/2020 16:50:25 12/22/2020 13:43:17 Palpitations 09891567 R00.2 had been well controlled with atenolol. now occurring more frequently , nightly. no associated Sx. no caffeine. no exertional Sx. will get holter and follow up based on results [id number] Gunjan Kapoor NP , [facility], OFFICE [address] [place] [phone] 05/11/2021 14:19:08 05/11/2021 16:36:01 Adult health examination 224072302 Z00.00 see Risk Assessment and Lifestyle Change Counseling section above- HCP: 03/23/18 - Pap: 02/2017 w/5yr repeat - [place] 01/27/20 w/5yr repeat, ordered - mammo: she reports having this done 09/2020 at [facility]. need records Depression screening 171 481029 Z13.31 depression screening tool administer ed, entered into emr, scored and discussed, time greater than 7.5 minutes Screening for alcohol abuse 477823317 Z13.39 An audit alcohol screening test was performed and scored. Patient was asked about alcohol use, advised about risks of alcohol, and personal risk was assessed, patient agreed to plan and given informatio n about available resources if needed. Discussion including screening and scoring greater than 7.5 minutes Counseling 836186168 Z71 .89 Active or passive immunization 214781450 Z23 Generalize d anxiety disorder 49190146 F41.1 stable with citalopram and self care Major depr ession, melancholic type 405276248 F32.0 stable on citalopram , will continue Hypothyroidism 21929673 E03.9 recent TSH wnl History of palpitations 664637275 Z86.79 well controlled with atenolol, tolerating well Mixed hyperlipidemia 267 709439 E78.2 LDL at goal of <160! continue working on regular fiber, veggies, fruit, lean protein, whole grains. exercise at least 30 minutes, 5 days a week. plan to recheck in 3 months Steatosis of liver 1007 K76.0 recheck liver function Impaired f asting glycemia 253133183 R73.01 discussed lifestyle changes. limit simple carbs. lean protein with every meal. exercise 30 minutes most days of the week. recheck in 3 months Plantar fasciitis 361152 003 M72.2 improving with chiropract or [id number] Nacho Montenegro MD , [facility], OFFICE [address] [place] [address] 10/01/2021 17:05:17 10/06/2021 12:08:19 Acute upper respiratory infection 05412632 J06.9 Educated patient that URI is a viral illness of the upper airways. It is not bacterial and does not benefit from antibiotic s. Average duration of URI is 7-10 days but in a recent trial, treatment at 7-10 days of illness with antibiotic s, intranasal steroids, or placebo did not alter natural history at 3 weeks. Recommende d symptomati c treatments including NSAIDS, semi-uprig ht sleep position, antihistam beverly at HS, limited course of nasal sympathomi metics and/or cough syrups, and nasal saline rinses with soft squeeze bottle or Neti pot. Return for fevers > 101 for 3 days, worsening sinus pain, or failure to resolve in 2-4 weeks. Acute sinusitis 07757458 J01.90 [id number] Gunjan Kapoor NP , [facility], OFFICE [address] [place] [address] 04/13/2022 07:42:12 04/13/2022 08:23:13 Active or passive immunization 235824347 Z23 Pneumo: remindedSh ingles: reminded Screening for osteoporosis 829819522 Z13.820 discussed, ordered Fatigue 22332840 R53.83 worsening fatigue with significan t daytime somnolence x2 weeks- likely related to insomnia- will get labs. hx of subclinica l hypothyroi dism- unbalanced diet high in simple carbs. infrequent meat- restart melatonin at bedtime. Continue working on sleep hygiene- colo and mammo utd- referring to sleep med for sleep study. [place] [address]- do not drive drowsy. discussed safety- 2 week follow up with pap (due) Insomnia 097360327 G47.0 0 will try melatonin again and work on sleep hygiene Daytime somnolence 34848 20880 00 R40.0 referring to sleep med Major depr ession, melancholic type 770117427 F32.0 stable on citalopram , will continue [id number] Gunjan Kapoor NP , [facility], OFFICE [address] [place] [address] 04/21/2022 08:25:52 05/06/2022 12:31:21 Screening for malignant neoplasm of cervix 502409615 Z12.4 p???ap done today. If NILM and HPV-, no further screening pas needed unless circumstan tray/Sx change Active or passive immunization 071084776 Z23 Pneumo: remindedSh ingles: reminded Fatigue 13354248 R53.83 resolved with regular sleep. continue melatonin before bed. will hold off on sleep med consult at this time Prediabetes 155828049 R7 3.03 [place] in 4 months with labs prior [id number] Mai Oden MD , [facility], OFFICE [address] [place] [address] 10/17/2022 15:19:42 10/18/2022 12:40:35 Palpitations 71174926 R00.2 Near syncope 103041569 R 55 Health Concerns Section Related Observation LastModified by Organization Detai ls LastModified Time None Recorded Concern Status LastModified by Organization Details LastModified Time None Recorded Advance Directives Directive N: Payers Encounter Date Sequence Insurance Name Policy Number Policy [place] Covered Member ID [place] Member ID Guarantor Name 05/11/2021 1 [facility] ([facility] [place] [id number] Ann Marie Deepika [id number] Ann Marie Deepika 10/01/2021 1 [facility] ([facility] [place] [id number] Ann Marie Deepika [id number] Ann Marie Deepika 04/13/2022 1 [facility] ([facility] [place] [id number] Ann Marie Deepika [id number] Ann Marie Deepika 04/21/2022 1 [facility] ([facility] [place] [id number] Ann Marie Deepika [id number] Ann Marie Poe 10/17/2022 1 [facility] ([facility] [place] [id number] Ann Marie Poe [id number] Ann Marie Poe Notes Date Note Type Note Provider Name and Address Organization Details Recorded Time 1 text/html Physical Exam/FemaleReported bypatient.PHAPatient is here for a Wellness Visit. She describes her health status as good. Patient's health is the same as last year.Notes: Risk Assessment and Lifestyle Change Counseling 50-64Reported bypatient.Coronary Artery Disease Risk Assessment:Family History of Coronary Artery Disease(dad of [place] at 47yo); No personal history of diabetes; No history of peripheral vascular disease, AAA, or carotid disease; No personal history of coronary artery disease; Patient has low risk for coronary artery disease Breast Cancer Risk Assessment:No family history of breast cancer; No history of breast cancer or dcis; Patient has low risk for breast cancer Colon Cancer Risk Assessment:Family history of colon polyps or colon cancer(mother w/ CA at 68. Sister w/ polyps at age 55yo); No history of adenomatous colon polyps; Patient has higher than average risk for colon cancer Lung Cancer Risk Assessment:Has used cigarettes;Has used cigarettes less than 30 pack years;Former smoker quit more than 15 years ago Fracture Risk Assessment:No unexplained fracture; menopause 54yo Cognitive/Behavioral Risk Assessment:Personal history of mental illnes(stable on celexa) Safety Risk Assessment:No evidence of abuse/neglect Diet:Counseled about appropriate portion size; Counseled about eating a diet low in trans and saturated fats and high in fiber, fruits and vegetables; Counseled about appropriate calcium intake and good dietary sources of calcium.; Counseled about the importance of maintaining a positive calcium balance and taking 1000 iu Vitamin D daily. Exercise counseling:Discussed the importance of daily physical activity; Discussed the importance of weight bearing exercise Safety:Counseled about protecting skin from the sun and lowering the risk of skin cancer; Counseled about avoiding excessive and unsafe alcohol intakeVMG HyperlipidemiaReported bypatient.Duration:chronic Control:well controlled Compliance:compliant with medications; compliant with follow-up visits; compliant with diet Barriers to Careabsence of motivation; history of depression Context:Nonsmoker; No ischemic heart disease; No peripheral vascular disease ([id number]); No diabetes; No carotid artery stenosis Associated Symptoms:no muscle pain; no fatigue; no chest discomfort; no dyspnea; no change in exercise capacity Ability to Manage Self CarePatient feels very confident in ability to self manage condition 05/11/2021 65yo F presents for wellness exam - HCP: 03/23/18- Pap: 02/2017 w/5yr repeat- [facility] 01/27/20 w/5yr repeat, ordered- mammo she thinks Sep 2020. will check records - Pt has co of legs feeling shaky when walking down the stairs. feels well going up stairs. this started with plantar fasciitis and tendoniti. not walking as much. seeing chiropractor- plans to start biking again, after work.- can get a stand to use the bike in her house for the darker part of the hear- she does not have a helmet but plans to get one impaired fasting blood sugar/prediabetes. discussed lifestyle changes. discussed the option of metfromin - like antiques- palpitations: well controlled with atenolol- depression: well controlled with celexa- lipids: just at goal with statin Gunjan Kapoor NP [address] [place] [address], [phone], [facility] [place] 05/11/2021 16:09:18 2 text/html VMG URI Flu like SymptomsReported bypatient.Duration:duration : less than 1 week; symptoms lasting over 2 weeks Severity:moderate Associated Symptoms:No fever/chills; No fatigue or malaise; Good oral intake; No significant muscle aches; No sweats; No purulent nasal discharge; No cough; No sputum production; No wheezing; No shortness of breath; No ear pressure or fullness; No earache; No sore throat; No difficulty swallowing; No swollen glands; No chest pain with deep breath; No abdominal pain; No nausea; No vomiting; No diarrhea; No rash;Headache;congestion;Le ft maxillary sinus pressure;Right maxillary sinus pressure;frontal sinus pressure Context:No sick contacts; No foreign travel; Non-smoker 10/01/21- Nacho Montenegro MD [address] [place] [address], [phone], [facility] [place] 10/03/2021 13:42:02 2 text/html 66yo F presents to discuss fatigue for a couple weeks- youngest son's is ! significant fatigue for a couple weeks- not sleeping great or eating well- feels like she could go to sleep anytime. poor focus- getting 6 inconsistent hour of sleep a night, was sleeping better with melatonin in the past. it stopped helping but did help last night- snores, wakes. non restorative sleep- no change in appetite- no orthopnea- no dizziness, dyspnea, chest pain, abnormal bleeding, rash - mammo 04/2021- upper endoscopy and colo 01/2020. 5 year repeat for colo- pap 2017 with 5 yr repeat, due flare of chronic stomach upset recently. oatmeal upsets her stomach flying to [facility] June 23 Gunjan Kapoor NP [address] [place], [phone], [facility] [place] 04/13/2022 22:05:32 2 text/html 6???6yo F presents for follow up-??? sleeping well now with melatonin. focus is better. feels back to normal!-??? will hold off on sleep med for now D???ue for pap. no vaginal concerns 66yo F presents to discuss fatigue for a couple weeks- youngest son's is ! significant fatigue for a couple weeks- not sleeping great or eating great- feels like she could go to sleep anytime. poor focus- getting 6 inconsistent hour of sleep a night, was sleeping better with melatonin in the past. it stopped helping but did help last night- a little dyspnea though hard to describe. not with exertion. feels like she needs a deep breath- snores, wakes. - no change in appetite - mammo 04/2021- upper endoscopy and colo 01/2020. 5 year repeat for colo- pap 2017 with 5 yr repeat, due- stomach upset recently. fiber [facility] Gunjan Kapoor NP [address] [place], [phone], [facility] [place] 04/21/2022 09:09:28 3 text/html on atenolol for her heart palpitations for many years.different type of palpitations this past weekend - daily with intermittent fast awarefeels she is going to pass out and with SOB at that timelasts a few minutes and occurs randomly several timesreviewed recent labs Mai Oden MD [address] [place] [address], [phone], [facility] [place] 10/17/2022 21:30:51 OBGyn Episode No OBEpisode recorded.
== END 2024-10-30 10:24 | disposition home or self-care (01) ==
LOC: HO.HMCFM 09:50
PROVIDERS: PCP Family Medicine; Visit Provider Family Medicine
DX: J32.9 Chronic sinusitis, unspecified (principal); R05.9 Cough, unspecified; I10 Essential (primary) hypertension; I25.10 Atherosclerotic heart disease of native coronary artery without angina pectoris; R21 Rash and other nonspecific skin eruption

== ENCOUNTER → 2024-10-30 09:49 | Outpatient (BNVA) | payer MEDICARE, SELFPAY | PROVIDERS: PCP Family Medicine; Visit Provider Family Medicine | DX: J32.9 Chronic sinusitis, unspecified (principal); R05.9 Cough, unspecified; I10 Essential (primary) hypertension; I25.10 Atherosclerotic heart disease of native coronary artery without angina pectoris; R21 Rash and other nonspecific skin eruption | CPT/HCPCS: 99212 ==